=== PATIENT | male | born 1960 | race Caucasian/White ===

== ENCOUNTER 2020-07-28 03:12 | Observation (INO) | payer OTHER ==
[~2020-07-28] VITALS: Ht 190.5 cm; Wt 182.9 kg
[2020-07-28] VITALS (9 sets, daily range): BP systolic 135–169; BP diastolic 68–90
[~2020-07-28 03:12] MED LIST: ACCU40TA PO; AMLO1TAB25 PO; ASPI81TA26 PO; FURO40TA2 PO; GLIP5TAB20 PO; K-TA1TAB PO; METF500T13 PO; SIMV40TA20 PO; onglyza PO
[2020-07-28] MEDS ORDERED: diphenhydrAMINE 50MG/ML VIAL (J1200) As Ordered ONE (03:41)
[2020-07-28] MEDS ORDERED: diphenhydrAMINE 50MG/ML VIAL (J1200) IV STA (03:42)
[2020-07-28] MEDS ORDERED: EPINEPHrine INJ 1 MG/ML 1ML AMP IM STA (03:42)
[2020-07-28] MEDS ORDERED: FAMOTIDINE INJ 20MG/2ML VIAL (S0028 PER 1) IVP ONE (03:45)
[2020-07-28] MEDS ORDERED: methylPREDNISolone 125MG 2ML VIAL IV ONE (03:45)
[2020-07-28 04:30] LABS: BASO # 0.1 10^3/uL (0.0-0.2); BASO % 0.8 % (0.0-1.0); EOS # 0.3 10^3/uL (0.0-0.5); EOS % 4.9 % (0.0-3.0); HEMATOCRIT 45.1 % (42.0-52.0); HEMOGLOBIN 14.1 g/dl (13.5-17.5); LYMPH # 1.7 10^3/uL (1.5-5.0); LYMPH % 27.1 % (24.0-44.0); MEAN CORPUSCULAR HEMOGLOBIN 27.9 pg (27.0-33.0); MEAN CORPUSCULAR HGB CONC 31.3 g/dl (32.0-36.5); MEAN CORPUSCULAR VOLUME 89.3 fl (80.0-96.0); MONO # 0.5 10^3/uL (0.0-0.8); MONO % 8.5 % (2.0-8.0); NEUTROPHILS # 3.7 10^3/uL (1.5-8.5); NEUTROPHILS % 58.4 % (36.0-66.0); PLATELET COUNT, AUTOMATED 241 10^3/uL (150-450); RED BLOOD COUNT 5.05 10^6/uL (4.30-6.10); WHITE BLOOD COUNT 6.4 10^3/uL (4.0-10.0)
[2020-07-28 05:04] LABS: ALBUMIN 3.3 GM/DL (3.2-5.2); ALT/SGPT 51 U/L (12-78); BILIRUBIN,DIRECT 0.1 MG/DL (0.0-0.2); BILIRUBIN,TOTAL 0.3 MG/DL (0.2-1.0); BLOOD UREA NITROGEN 41 MG/DL (7-18); CARBON DIOXIDE LEVEL 28 MEQ/L (21-32); CHLORIDE LEVEL 97 MEQ/L (98-107); CREATININE FOR GFR 1.27 MG/DL (0.70-1.30); GLOMERULAR FILTRATION RATE > 60.0 (>49); GLUCOSE, FASTING 245 MG/DL (70-100); POTASSIUM SERUM 3.7 MEQ/L (3.5-5.1); SODIUM LEVEL 136 MEQ/L (136-145); TOTAL PROTEIN 6.9 GM/DL (6.4-8.2)
[2020-07-28] MEDS ORDERED: ZOCO40TA PO (05:56)
[2020-07-28] MEDS ORDERED: FURO80TA2 PO (05:56)
[2020-07-28] MEDS ORDERED: GLIP10TA6 PO (05:56)
[2020-07-28] MEDS ORDERED: FISH1000 PO (05:56)
[2020-07-28] MEDS ORDERED: METF10004 PO (05:56)
[2020-07-28] MEDS ORDERED: [UNRECOGNIZED DRUG - OTHER] (05:56)
[2020-07-28] MEDS ORDERED: METO50TA7 PO (06:03)
[2020-07-28] MEDS ORDERED: XARE20TA PO (06:03)
[2020-07-28] MEDS ORDERED: STEG5TAB PO (06:03)
[2020-07-28] MEDS ORDERED: EZET10TA21 PO (06:03)
[2020-07-28] MEDS ORDERED: TRULICITY (06:03)
[2020-07-28] MEDS ORDERED: METO25TA PO (06:03)
[2020-07-28] MEDS ORDERED: GABA-282 PO ×2 (06:03)
[2020-07-28] MEDS ORDERED: OXYB5TAB10 PO (06:03)
[2020-07-28] MEDS ORDERED: MITI1CAP PO (06:03)
[2020-07-28] MEDS ORDERED: BASA100I SC (06:03)
[2020-07-28] MEDS ORDERED: TRUL0.5I SC (06:08)
--- NOTE | 2020-07-28 07:07 | HPEPDOC ---
General Date of Admission Jul 28, 2020 at 05:33 Date of Service: Jul 28, 2020 Chief Complaint The patient is a 60-year-old male admitted with a reason for visit of Swollen Tongue. Source: Patient History of Present Illness Mr. Mckeon is a 60 year old male with DM and hypertension who presents with angioedema. Recently he had gout of his left leg and was started on colchicine on Tuesday. Last night, he woke up around midnight and his tongue felt frozen and stiff. He went back to sleep but work up again 30 minutes later. He was concerned that he may have had a stroke since he could not move his tongue and went to a mirror to look at his tongue. His tongue was so large it filled his entire mouth. Denies dyspnea. He came to the ED. He was treated with diphenhydramine, famotidine, solumedrol, and epinephrine. His tongue swelling improved, but still large. ED ordered 2FFP for tongue swelling and called for admission. When I saw patient, he was sitting up. He was not in any distress. Denies fever, chest pain, dyspnea, abdominal pain, or dysuria. He is on quinapril and has been taking quinapril for a long time. Suspecting angioedema from quinapril. Patient will be place in observation for angioedema secondary to quinapril. Home Medications Scheduled Aspirin (Aspirin EC) 81 Mg Tab, 81 MG PO DAILY, (Reported) Colchicine (Mitigare) 0.6 Mg Capsule, 0.6 MG PO BID, (Reported) Dulaglutide (Trulicity) 1.5 Mg/0.5 Ml Pen.injctr, 1.5 MG SC Q7D, (Reported) tuesday Ertugliflozin Pidolate (Steglatro) 5 Mg Tablet, 5 MG PO DAILY, (Reported) Ezetimibe (Ezetimibe) 10 Mg Tablet, 10 MG PO DAILY, (Reported) Furosemide (Furosemide) 80 Mg Tablet, 80 MG PO BID, (Reported) Gabapentin (Gabapentin) 300 Mg Capsule, 300 MG PO QAM, (Reported) Gabapentin (Gabapentin) 300 Mg Capsule, 600 MG PO QPM, (Reported) Glipizide (Glipizide) 10 Mg Tablet, 10 MG PO BID, (Reported) Insulin Glargine,Hum.rec.anlog (Basaglar Kwikpen U-100) 100 Unit/1 Ml Insuln.p en, 99 UNIT SC QHS, (Reported) Metformin HCl (Metformin HCl) 1,000 Mg Tablet, 1,000 MG PO BID, (Reported) Metolazone (Metolazone) 2.5 Mg Tablet, 2.5 MG PO 2XW, (Reported) TUESDAY AND TUESDAY Metoprolol Tartrate (Metoprolol Tartrate) 50 Mg Tablet, 50 MG PO BID, (Reported) [place]-3 Fatty Acids/Fish Oil (Fish Oil 1,000 mg Capsule) 1 Each Capsule, 2,000 MG PO DAILY, (Reported) Oxybutynin Chloride (Oxybutynin Chloride) 5 Mg Tablet, 5 MG PO BID, (Reported) Potassium Chloride (K-Tab ER) 20 Meq Tab, 40 MEQ PO DAILY, (Reported) Quinapril Hcl (Accupril) 40 Mg Tab, 40 MG PO DAILY, (Reported) Rivaroxaban (Xarelto) 20 Mg Tablet, 20 MG PO DAILY, (Reported) Simvastatin (Zocor) 40 Mg Tablet, 40 MG PO QPM, (Reported) Allergies Coded Allergies: atorvastatin (Verified Allergy, Unknown, 07/28/20) niacin (Verified Allergy, Unknown, 07/28/20) Past Medical History Medical History 1. CHF 2. CAD 3. Atrial fibrillation 4. Hypertension 5. Sleep apnea 6. Diabetes mellitus Surgical History 1. Umbilical hernia 2. Laminectomy Social History * Smoker: Denies Alcohol: Denies Drugs: denies A-FIB/CHADSVASC A-FIB History Current/History of A-Fib/PAF?: Yes Current PO Anticoag Therapy: Yes Review of Systems Constitutional: Denies: Chills, Fever Eyes: Denies: Vision change ENT: Reports: Other Symptoms (Tongue swelling) Skin: Denies: Rash Pulmonary: Denies: Dyspnea Cardiovascular: Denies: Chest Pain Gastrointestinal: Denies: Nausea, Abdominal Pain Genitourinary: Denies: Dysuria Hematologic: Reports: Bruising (bruises easily /2 Xarelto) Psych: Denies: Anxiety, Depression Physical Examination General Exam: Positive: Alert, Cooperative Eye Exam: Positive: EOMI; Negative: Sclera icteric ENT Exam: Positive: Other ENT (Tongue swelling, but midline, came move left and right) Neck Exam: Positive: Supple Chest Exam: Positive: Clear to auscultation; Negative: Rales, Rhonchi, Wheezing Heart Exam: Positive: Rate Normal Abdomen Exam: Positive: Normal bowel sounds, Soft, Other (obese) Neuro Exam: Positive: Cranial Nerves 3-12 NL Psych Exam: Positive: Mental status NL, Mood NL Vital Signs Vital Signs Date Time Temp Pulse Resp B/P (MAP) Pulse Ox O2 Delivery O2 Flow Rate FiO2 07/28/20 03:13 98.7 65 18 157/103 (121) 95 Room Air Laboratory Data Labs 24H Laboratory Tests 2 07/28/20 04:22: Immature Granulocyte % (Auto) 0.3, Neutrophils (%) (Auto) 58.4, Lymphocytes (%) (Auto) 27.1, Monocytes (%) (Auto) 8.5H, Eosinophils (%) (Auto) 4.9H, Basophils (%) (Auto) 0.8, Neutrophils # (Auto) 3.7, Lymphocytes # (Auto) 1.7, Monocytes # (Auto) 0.5, Eosinophils # (Auto) 0.3, Basophils # (Auto) 0.1, Nucleated Red Blood Cells % (auto) 0.0, Anion Gap 11, Glomerular Filtration Rate > 60.0, Calcium Level 9.0, Total Bilirubin 0.3, Direct Bilirubin 0.1, Aspartate Amino Transf (AST/SGOT) 34, Alanine Aminotransferase (ALT/SGPT) 51, Alkaline Phosphatase 171H, Total Protein 6.9, Albumin 3.3, Albumin/Globulin Ratio 0.9 CBC/BMP Laboratory Tests 07/28/20 04:22 Assessment/Plan Mr. Mckeon is a 60 year old male here with angioedema 2/2 ACEi. Received steroids, epinephrine, famotidine, and diphenhydramine in the ED. Swelling improved. Now receiving FFP. Patient here for observation. Plan / VTE VTE Prophylaxis Ordered?: Yes Plan Plan 1. Angioedema 2/2 ACEi -Hold quinapril -Already received steroids, diphenhydramine, famotidine, and epinephrine with improvement -Now receiving FFP -Supportive care 2. Hypertension -Hold quinapril -Continue metoprolol 3. Diabetes mellitus -Hold glipizide and metformin -Sliding scale insulin and carbohydrate consistent diet 4. CHF -Continue furosemide and metoprolol 5. CAD -Continue aspirin, simvastatin, and metoprolol 6. Atrial fibrillation -Continue Xarelto and metoprolol 7. DVT ppx -On Xarelto Disposition: To receive 2u FFP and monitor on observation. If tolerates diet, po ssible discharge home with instructions to stop quinapril JOHN VEGA DO Jul 28, 2020 06:02
[2020-07-28] MEDS: oxyBUTYnin 5 MG TAB PO SCH ×2 (09:00→20:37)
[2020-07-28] MEDS: POTASSIUM CHLORIDE 10 MEQ SR TABLET PO SCH (13:48)
[2020-07-28] MEDS: RIVAROXABAN 20 MG TAB (XARELTO) PO SCH (13:49)
[2020-07-28] MEDS: ASPIRIN 81 MG ENTERIC TAB PO SCH (13:49)
[2020-07-28] MEDS: METOPROLOL TART 50 MG TAB PO SCH ×2 (13:49→20:36)
[2020-07-28] MEDS: GABAPENTIN 300 MG CAP PO SCH (13:50)
[2020-07-28] MEDS: COLCHICINE 0.6 MG TABLET PO SCH ×2 (13:50→20:36)
[2020-07-28] MEDS: FUROSEMIDE 80 MG TAB PO SCH ×2 (13:50→17:17)
[2020-07-28] MEDS: EZETIMIBE 10 MG TAB (ZETIA) PO SCH (13:50)
[2020-07-28] MEDS ORDERED: GLUCAGON INJ 1MG VIAL SC PRN (15:15)
[2020-07-28] MEDS ORDERED: GLUCOSE 4GM CHEW TABLET PO PRN (15:15)
[2020-07-28] MEDS ORDERED: DEXTROSE 50% 50 ML SYRINGE IV PRN (15:15)
[2020-07-28] MEDS ORDERED: SLF 3 ML SYR IV PRN (15:45)
[2020-07-28] MEDS: HumaLOG INSULIN (NovoLOG) PER UNIT SC SCH (16:04)
[2020-07-28] MEDS: SLF 3 ML SYR IV SCH (20:38)
[2020-07-28] MEDS ORDERED: GABAPENTIN 300 MG CAP PO SCH (21:00)
[2020-07-28] MEDS ORDERED: SIMVASTATIN 40 MG TAB PO SCH (21:00)
[2020-07-28] MEDS ORDERED: LEVEMIR (INSULIN DETEMIR) 1 UNITS/0.01ML SC SCH (21:00)
[2020-07-29] VITALS: BP 136/70
[2020-07-29 04:00] VITALS: BP 131/76
[2020-07-29] MEDS: SLF 3 ML SYR IV SCH (06:48)
[2020-07-29 08:00] VITALS: BP 122/63
[2020-07-29] MEDS: COLCHICINE 0.6 MG TABLET PO SCH (08:07)
[2020-07-29] MEDS: HumaLOG INSULIN (NovoLOG) PER UNIT SC SCH ×2 (08:07→11:42)
[2020-07-29] MEDS: RIVAROXABAN 20 MG TAB (XARELTO) PO SCH (08:08)
[2020-07-29] MEDS: EZETIMIBE 10 MG TAB (ZETIA) PO SCH (08:08)
[2020-07-29] MEDS: ASPIRIN 81 MG ENTERIC TAB PO SCH (08:08)
[2020-07-29] MEDS: POTASSIUM CHLORIDE 10 MEQ SR TABLET PO SCH (08:08)
[2020-07-29] MEDS: METOPROLOL TART 50 MG TAB PO SCH (08:08)
[2020-07-29] MEDS: GABAPENTIN 300 MG CAP PO SCH (08:09)
[2020-07-29] MEDS: oxyBUTYnin 5 MG TAB PO SCH (08:09)
[2020-07-29] MEDS: FUROSEMIDE 80 MG TAB PO SCH (08:09)
[2020-07-29] MEDS ORDERED: metOLazone 2.5 MG TAB PO SCH (09:00)
[2020-07-29] MEDS ORDERED: AMLO1TAB24 PO (10:13)
--- NOTE | 2020-07-29 11:36 | IPNPDOC ---
Text Note Date of Service The patient was seen on 07/28/20. NOTE Patient was seen and examined this morning. He states that he feels a little better and his swollen tongue is getting better. He continues to be tachycardic, likely secondary to the EPI which was given in the ER PHYSICAL EXAMINATION: General: The patient is awake, alert, oriented x3, sitting up in the bed in no apparent distress. Head and Neck Exam: Extraocular muscles intact. Pupils equally round and reactive to light. Mucous membranes are moist. Tongue is slightly swollen but uvula is midline. No hoarseness of voice Neck is supple. There is no jugular venous distention (JVD). Cardiovascular: S1 and S2, regular rate. Trace edema of the bilateral lower extremities. Respiratory: Mild inspiratory crackles at the right base, mildly decreased breath sounds at the left side. Abdomen: Soft. Positive bowel sounds. Nontender. No organomegaly. Genitourinary: Deferred Musculoskeletal: Clubbing of the fingernails, no cyanosis was noted. Central Nervous System (SHINGLE PACKER): No focal deficit. Power is 5/5 in all extremities. Assessment and plan Mr. Mckeon is a 60 year old male with DM and hypertension who presents with angioedema. Recently he had gout of his left leg and was started on colchicine on Tuesday. Last night, he woke up around midnight and his tongue felt frozen and stiff. He went back to sleep but work up again 30 minutes later. He was concerned that he may have had a stroke since he could not move his tongue and went to a mirror to look at his tongue. His tongue was so large it filled his entire mouth. He came to the ED. He was treated with diphenhydramine, famotidine, solumedrol, and epinephrine. His tongue swelling improved, but still large. ED ordered 2FFP for tongue swelling and he was admitted to our service. He is on quinapril and has been taking quinapril for a long time. Suspecting angioedema from quinapril. Patient will be place in observation for angioedema s econdary to quinapril.. He continues to be tachycardic, likely secondary to the epi he got in the ER and for that reason, he will be continued to be in observation. 1. Angioedema 2/2 ACEi -Hold quinapril -Already received steroids, diphenhydramine, famotidine, and epinephrine with improvement -FFP as per ER -Supportive care -Decadron 2 mg oral daily 2. Hypertension -Hold quinapril -Continue metoprolol 3. Diabetes mellitus -Hold glipizide and metformin -Sliding scale insulin and carbohydrate consistent diet 4. CHF, most likely diastolic heart failure ( no echo in the system.) -Continue furosemide and metoprolol. Input output and 2 g sodium restriction 5. CAD -Continue aspirin, simvastatin, and metoprolol 6. Atrial fibrillation -Continue Xarelto and metoprolol 7. DVT ppx -On Xarelto Disposition: Continue monitoring him on telemetry and once his heart rate is stabilized and his swelling improves. He'll be sent home, hopefully within the next 24 hours VS,Esmer, I+O VSEsmer, I+O Laboratory Tests 07/28/20 04:22 Vital Signs Date Time Temp Pulse Resp B/P (MAP) Pulse Ox O2 Delivery O2 Flow Rate FiO2 07/28/20 08:19 145 20 97 07/28/20 08:01 166/70 (102) 07/28/20 07:42 Room Air 07/28/20 06:53 96.0 FELA BALL MD Jul 28, 2020 11:04
--- NOTE | 2020-07-29 11:41 | DS.PDOC ---
Discharge Summary General Date of Admission Jul 28, 2020 at 05:33 Date of Discharge 07/29/20 Discharge Summary Chief complaints: Swollen tongue Final diagnosis Anaphylaxis Drug reaction History of present illness and Hospital course Mr. Mckeon is a 60 year old male with DM and hypertension who presents with angioedema. Recently he had gout of his left leg and was started on colchicine on Tuesday. Last night, he woke up around midnight and his tongue felt frozen and stiff. He went back to sleep but work up again 30 minutes later. He was conc erned that he may have had a stroke since he could not move his tongue and went to a mirror to look at his tongue. His tongue was so large it filled his entire mouth. He came to the ED. He was treated with diphenhydramine, famotidine, solumedrol, and epinephrine. His tongue swelling improved, but still large. ED ordered 2FFP for tongue swelling and he was admitted to our service. He is on quinapril and has been taking quinapril for a long time. Suspecting angioedema from quinapril. Patient will be place in observation for angioedema secondary to quinapril.. He was tachycardic, likely secondary to the epi he got in the ER and for that reason, that is the reason he was continued to be monitored and now his heart rates are in 80s and 90s. He continues to be on his metoprolol. We had a long discussion regarding his inability to be DC'd and at the same time he got beclomethasone as well as Decadron for 2 days. He is in no distress right now. His uvula is midline. He has no shortness of breath. Lungs are clear aus cultation and he has no dysphagia. He has been advised to follow with the PCP regarding his other medications as well and he has an appointment with his PCP with regards to his colchicine which she has been taking for his gout flareup. Given his CKD, I have advised him to have a close follow with his PCP and get his drugs ingested. He also has a follow-up with his cardiology with [facility] next month for his A. fib. He continues to be on Xarelto and metoprolol, and currently he is rate controlled. He is eager to go home today and maximal benefit from this hospital stay has been opting. PHYSICAL EXAMINATION: General: The patient is awake, alert, oriented x3, sitting up in the bed in no apparent distress. Head and Neck Exam: Extraocular muscles intact. Pupils equally round and reactive to light. Mucous membranes are moist. Tongue is slightly swollen but uvula is midline. No hoarseness of voice Neck is supple. There is no jugular venous distention (JVD). Cardiovascular: S1 and S2, regular rate. Trace edema of the bilateral lower extremities. Respiratory: Clear auscultation bilaterally Abdomen: Soft. Positive bowel sounds. Nontender. No organomegaly. Genitourinary: Deferred Musculoskeletal: Clubbing of the fingernails, no cyanosis was noted. Central Nervous System (HYDRAULIC PLUMBER HELPER): No focal deficit. Power is 5/5 in all extremities. Mediictations. As per discharge reconciliation medication list. Quinapril has been discontinued and amlodipine 5, has been admitted and started Activity as tolerated Diet. 2 g sodium diet Follow-up appointments. PCP in 1 week. Condition on discharge. Patient is medically optimized for discharge Discharge disposition: Home Total time spent on this discharge including coordination of care, review of chart documentation and actual patient contact is around 35 minutes Vital Signs/I&Os Vital Signs Date Time Temp Pulse Resp B/P (MAP) Pulse Ox O2 Delivery O2 Flow Rate FiO2 07/29/20 08:08 100 07/29/20 08:00 97.7 19 122/63 (82) 95 Room Air I&O- Last 24 Hours up to 6 AM 07/29/20 06:00 Intake Total 1245 ml Output Total 1300 ml Balance -55 ml Laboratory Data Labs 24H Laboratory Tests 2 07/28/20 13:14: Bedside Glucose (Misc Panel) 360H 07/28/20 17:10: Bedside Glucose (Misc Panel) 341H 07/28/20 20:20: Bedside Glucose (Misc Panel) 446H 07/29/20 06:47: Bedside Glucose (Misc Panel) 303H FSBS Laboratory Tests Test 07/28/20 13:14 07/28/20 17:10 07/28/20 20:20 07/29/20 06:47 Range/Units Bedside Glucose (Misc Panel) 360 341 446 303 80-115 MG/DL Microbiology Microbiology 07/28/20 Respiratory Virus Panel (PCR) (KAY) - Final, Complete Discharge Medications Scheduled Amlodipine Besylate (Amlodipine Besylate) 5 Mg Tablet, 5 MG PO DAILY Aspirin (Aspirin EC) 81 Mg Tab, 81 MG PO DAILY, (Reported) Colchicine (Mitigare) 0.6 Mg Capsule, 0.6 MG PO BID, (Reported) Dulaglutide (Trulicity) 1.5 Mg/0.5 Ml Pen.injctr, 1.5 MG SC Q7D, (Reported) tuesday Ertugliflozin Pidolate (Steglatro) 5 Mg Tablet, 5 MG PO DAILY, (Reported) Ezetimibe (Ezetimibe) 10 Mg Tablet, 10 MG PO DAILY, (Reported) Furosemide (Furosemide) 80 Mg Tablet, 80 MG PO BID, (Reported) Gabapentin (Gabapentin) 300 Mg Capsule, 300 MG PO QAM, (Reported) Gabapentin (Gabapentin) 300 Mg Capsule, 600 MG PO QPM, (Reported) Glipizide (Glipizide) 10 Mg Tablet, 10 MG PO BID, (Reported) Insulin Glargine,Hum.rec.anlog (Basaglar Kwikpen U-100) 100 Unit/1 Ml Insul n.pen, 99 UNIT SC QHS, (Reported) Metformin HCl (Metformin HCl) 1,000 Mg Tablet, 1,000 MG PO BID, (Reported) Metolazone (Metolazone) 2.5 Mg Tablet, 2.5 MG PO 2XW, (Reported) TUESDAY AND TUESDAY Metoprolol Tartrate (Metoprolol Tartrate) 50 Mg Tablet, 50 MG PO BID, (Reported) [place]-3 Fatty Acids/Fish Oil (Fish Oil 1,000 mg Capsule) 1 Each Capsule, 2,000 MG PO DAILY, (Reported) Oxybutynin Chloride (Oxybutynin Chloride) 5 Mg Tablet, 5 MG PO BID, (Reported) Potassium Chloride (K-Tab ER) 20 Meq Tab, 40 MEQ PO DAILY, (Reported) Rivaroxaban (Xarelto) 20 Mg Tablet, 20 MG PO DAILY, (Reported) Simvastatin (Zocor) 40 Mg Tablet, 40 MG PO QPM, (Reported) Allergies Coded Allergies: atorvastatin (Verified Allergy, Unknown, 07/28/20) niacin (Verified Allergy, Unknown, 07/28/20) FELA BALL MD Jul 29, 2020 11:41
== END 2020-07-29 12:09 | disposition home or self-care (01) ==
LOC: M ED 03:12 → M ED INP 05:33 → M MSPAV 07:38 → M ED INP 07:41 → M PCU 16:48
PROVIDERS: ADMIT Internal Medicine; ATTEND Internal Medicine
DX: T88.6XXA Anaphylactic reaction due to adverse effect of correct drug or medicament properly administered, initial encounter (principal); E11.9 Type 2 diabetes mellitus without complications; I11.9 Hypertensive heart disease without heart failure; I50.9 Heart failure, unspecified; I25.10 Atherosclerotic heart disease of native coronary artery without angina pectoris; I48.91 Unspecified atrial fibrillation; G47.30 Sleep apnea, unspecified; M10.9 Gout, unspecified; Z79.82 Long term (current) use of aspirin; Z79.899 Other long term (current) drug therapy; Z79.4 Long term (current) use of insulin; Z79.84 Long term (current) use of oral hypoglycemic drugs; Z79.01 Long term (current) use of anticoagulants; Z88.8 Allergy status to other drugs, medicaments and biological substances
CPT/HCPCS: 36430; 80048; 80076; 85025; 86850; 86900; 86901; 86927; 87798; 93041; 94760; 96372; 96374; 96375; 99285; J0171; J1200; J2930; P9017

== ENCOUNTER 2020-08-17 00:54 | Inpatient (IN) | payer OTHER ==
[~2020-08-17] VITALS: Ht 190.5 cm; Wt 185.0 kg
[2020-08-17] VITALS (8 sets, daily range): BP systolic 134–170; BP diastolic 71–94
[~2020-08-17 00:54] MED LIST changes: +AMLO1TAB24 PO; +BASA100I SC; +EZET10TA21 PO; +FISH1000 PO; +FURO80TA2 PO; +GABA-282 PO; +GLIP10TA6 PO; +METF10004 PO; +METO25TA PO; +METO50TA7 PO; +MITI1CAP PO; +OXYB5TAB10 PO; +STEG5TAB PO; +TRUL0.5I SC; +TRULICITY; +XARE20TA PO; +ZOCO40TA PO; +[UNRECOGNIZED DRUG - OTHER]
[2020-08-17] MEDS ORDERED: FAMOTIDINE INJ 20MG/2ML VIAL (S0028 PER 1) IVP ONE (01:00)
[2020-08-17] MEDS ORDERED: diphenhydrAMINE 50MG/ML VIAL (J1200) IV ONE (01:00)
[2020-08-17] MEDS ORDERED: dexameTHASONE 20MG/5ML VIAL (J1100 PER 1MG) IV ONE (01:00)
[2020-08-17] MEDS ORDERED: RACEPINEPHrine 2.25 % UD INHA INH ONE (01:00)
[2020-08-17 01:10] LABS: BASO % 0.5 % (0.0-1.0); EOS # 0.3 10^3/uL (0.0-0.5); EOS % 5.2 % (0.0-3.0); HEMATOCRIT 44.5 % (42.0-52.0); HEMOGLOBIN 14.1 g/dl (13.5-17.5); LYMPH # 2.2 10^3/uL (1.5-5.0); LYMPH % 34.4 % (24.0-44.0); MEAN CORPUSCULAR HEMOGLOBIN 28.7 pg (27.0-33.0); MEAN CORPUSCULAR HGB CONC 31.7 g/dl (32.0-36.5); MEAN CORPUSCULAR VOLUME 90.6 fl (80.0-96.0); MONO # 0.5 10^3/uL (0.0-0.8); MONO % 8.1 % (2.0-8.0); NEUTROPHILS # 3.2 10^3/uL (1.5-8.5); NEUTROPHILS % 51.5 % (36.0-66.0); PLATELET COUNT, AUTOMATED 196 10^3/uL (150-450); RED BLOOD COUNT 4.91 10^6/uL (4.30-6.10); WHITE BLOOD COUNT 6.3 10^3/uL (4.0-10.0)
[2020-08-17 03:00] LABS: ALBUMIN 3.3 GM/DL (3.2-5.2); ALT/SGPT 52 U/L (12-78); BILIRUBIN,DIRECT 0.1 MG/DL (0.0-0.2); BILIRUBIN,TOTAL 0.3 MG/DL (0.2-1.0); BLOOD UREA NITROGEN 21 MG/DL (7-18); CARBON DIOXIDE LEVEL 28 MEQ/L (21-32); CHLORIDE LEVEL 104 MEQ/L (98-107); GLOMERULAR FILTRATION RATE > 60.0 (>49); GLUCOSE, FASTING 207 MG/DL (70-100); POTASSIUM SERUM 3.6 MEQ/L (3.5-5.1); SODIUM LEVEL 139 MEQ/L (136-145); TOTAL PROTEIN 6.6 GM/DL (6.4-8.2)
--- NOTE | 2020-08-17 03:47 | REPVR ---
PROCEDURE INFORMATION: Exam: XR Soft Tissue Neck Exam date and time: 08/17/2020 3:11 AM Age: 60 years old Clinical indication: Angioedema TECHNIQUE: Imaging protocol: XR of the soft tissues of the neck. COMPARISON: No relevant prior studies available. FINDINGS: Airway: No airway compromise is noted. Soft tissues: There are calcifications in the region of the palatine tonsils, which likely represent palatine tonsilloliths and are the sequela of prior infection and/or inflammation. There is enlargement of the soft tissues of the neck. Bones/joints: There are degenerative changes in the cervical spine. Other findings: There is a linear density projecting over the right side of the neck, which appears external to the patient. IMPRESSION: 1. Enlargement of the soft tissues of the neck. 2. No airway compromise identified in the neck. Electronically signed by: Karl Gilmore On 08/17/2020 03:47:06 AM
--- NOTE | 2020-08-17 03:47 | REPVR ---
PROCEDURE INFORMATION: Exam: XR Chest Exam date and time: 08/17/2020 3:11 AM Age: 60 years old Clinical indication: Angioedema TECHNIQUE: Imaging protocol: XR of the chest Views: 1 view. COMPARISON: No relevant prior studies available. FINDINGS: Lungs: There is left basilar atelectasis. No pulmonary edema is noted. Pleural spaces: Unremarkable. No pleural effusion. No pneumothorax. Heart/Mediastinum: The cardiac silhouette is enlarged. Bones/joints: Unremarkable. Other findings: There is a linear density projecting over the right upper hemithorax and right supraclavicular region, which is likely external to the patient. IMPRESSION: Cardiomegaly. Electronically signed by: Karl Gilmore On 08/17/2020 03:47:19 AM
[2020-08-17] MEDS ORDERED: AMLO1TAB24 PO (03:53)
[2020-08-17] MEDS ORDERED: med rec comment (03:56)
[2020-08-17 04:08] LABS: RSV AMPLIFICATION NEGATIVE (NEGATIVE)
--- NOTE | 2020-08-17 04:32 | HPEPDOC ---
[facility] Medical History & Physical Date of Admission Aug 17, 2020 Date of Service: Aug 17, 2020 Attending Physician: MARZENA WILLIAM MD History and Physical CHIEF COMPLAINT: tongue swelling HISTORY OF PRESENT ILLNESS: 60 year old male with PMHx detailed below presents after waking up this morning with a swollen tongue. He states he woke up suddenly and could feel his tongue feeling stiff and swollen. He states this occurred once before just a few weeks ago, so he knew he needed to get up and come to the ED. He states his symptoms presented the same way last time, waking him up out of sleep. At that time, his symptoms were attributed to his COLT- inhibitor medication, quinapril, and this was discontinued. He states he has not take that medication since before the first episode in July. He also notes he is currently having an acute flare of gout in his right ankle. He states he has been taking colchicine for gout. In the ER, the patient was treated with racepinephrine, benadryl, famotadine, decadron, and FFP x2 units. Patient was somewhat limited in his ability to give a full history due to difficulty speaking; some of the history is obtained by chart review. PAST MEDICAL HISTORY: 1. CHF 2. CAD 3. Atrial fibrillation 4. Hypertension 5. Sleep apnea 6. Diabetes mellitus 7. Gout PAST SURGICAL HISTORY: 1. Umbilical hernia 2. Laminectomy SOCIAL HISTORY: Denies use of tobacco, alcohol, IV/illicit substances FAMILY HISTORY: No family history of angioedema or facial/mouth swelling. Otherwise noncontributory. ALLERGIES: Please see below. REVIEW OF SYSTEMS: CONSTITUTIONAL: Denies fevers, chills, night sweats, fatigue, unexpected change in weight. HEENT: Denies change in vision, change in hearing. CARDIOVASCULAR: Denies chest pain, palpitations, lightheadedness. RESPIRATORY: Denies cough, wheezing. GASTROINTESTINAL: Denies nausea, vomiting, abdominal pain, diarrhea, constipa tion, blood in stool. GENITOURINARY: Denies dysuria, urinary frequency, urinary urgency. SKIN: Denies rash, lesions. MUSCULOSKELETAL: Endorses current buttocks pain due to discomfort sitting on the stretcher. NEUROLOGICAL: Denies headache, dizziness, weakness. PSYCHIATRIC: Denies change in mood. HOME MEDICATIONS: Please see below. PHYSICAL EXAMINATION: VITAL SIGNS: See below GENERAL: Alert, somewhat uncomfortable, in no acute distress HEENT: Normocephalic, atraumatic, PERRLA, EOMI, tongue appears swollen, minimal swelling of the lips, patient able to talk for short periods but has difficulty managing secretions and needs to stop frequently to clear them. NECK: Supple, trachea midline, no lymphadenopathy, no JVD CARDIOVASCULAR: Tachycardic with irregularly irregular rhythm, normal S1 and S2. No murmurs, rubs, or gallops RESPIRATORY: Clear to auscultation bilaterally with equal air entry bilaterally. No wheezing, rhonchi, or rales. ABDOMEN: Obese, soft, nontender, nondistended, bowel sounds present. EXTREMITIES: Trace to 1+ pitting edema in bilateral lower extremities. Swelling, erythema, and tenderness over the right medial ankle. SKIN: Stasis dermatitis over bilateral lower legs. No hives. NEUROLOGIC: Alert and oriented x3 to person, place and time. No focal deficits appreciated PSYCHIATRIC: Mood and affect appropriate LABORATORY DATA: See below. IMAGING: (impressions per radiologist report) - XR Neck 1. Enlargement of the soft tissues of the neck. 2. No airway compromise identified in the neck. - CXR Cardiomegaly. MICROBIOLOGY: Please see below. ASSESSMENT: 60 year old male with PMHx including atrial fibrillation, CAD, CHF, HTN, VANESSA, DM, gout, and one prior episode of angioedema presented to the ED with acute onset tongue swelling, admitted for management and further evaluation of angioedema PLAN: 1. Angioedema 2/2 medication vs hereditary vs allergy vs recurrent idiopathic - s/p racepinephrine, benadryl, famotadine, decadron, and FFP x2 units in the ER - NPO diet pending swallow eval. Can do nursing bedside swallow if he is improving. - Steroids daily, will start with IV solumedrol 80 mg daily until he is able to take PO, then switch to prednisone - Medication less likely give he is no longer on any meds which are higher risk of angioedema. Could consider switching some of his medications that have a small risk of angioedema - Allergic less likely given no urticaria/rash/pruritus. - Ordered C4 level to begin work up for possible HAE. Consider drawing tender referral on discharge. 2. Acute gout - hold colchicine while NPO - Pt started on daily steroid for angioedema above, may help treat his gout flare as well 3. Diabetes mellitus - Hold home medications - FSBS q6h while NPO, hypoglycemic protocol 4. CHF - hold home furosemide and metolazone while NPO, consider IV dosing if indicated - Will hold off on IV maintenance fluids for now to avoid fluid overload 5. CAD - hold home aspirin, simvastatin, and metoprolol while NPO 6. Atrial fibrillation - Hold metoprolol while NPO, consider IV medication if indicated for rate control - Will switch Xarelto to Lovenox while NPO in order to maintain anticoagulation DVT ppx: Full dose lovenox Disposition: admitted inpatient to ICU, expect greater than two midnights stay Vital Signs Vital Signs Date Time Temp Pulse Resp B/P (MAP) Pulse Ox O2 Delivery O2 Flow Rate FiO2 08/17/20 04:01 97.8 104 22 134/78 96 Room Air Laboratory Data Labs 24H Laboratory Tests 2 08/17/20 01:00: Immature Granulocyte % (Auto) 0.3, Neutrophils (%) (Auto) 51.5, Lymphocytes (%) (Auto) 34.4, Monocytes (%) (Auto) 8.1H, Eosinophils (%) (Auto) 5.2H, Basophils (%) (Auto) 0.5, Neutrophils # (Auto) 3.2, Lymphocytes # (Auto) 2.2, Monocytes # (Auto) 0.5, Eosinophils # (Auto) 0.3, Basophils # (Auto) 0.0, Nucleated Red Blood Cells % (auto) 0.0, Anion Gap 7L, Glomerular Filtration Rate > 60.0, Calcium Level 9.0, Total Bilirubin 0.3, Direct Bilirubin 0.1, Aspartate Amino Transf (AST/SGOT) 41H, Alanine Aminotransferase (ALT/SGPT) 52, Alkaline Phosphatase 198H, Total Protein 6.6, Albumin 3.3, Albumin/Globulin Ratio 1.0 08/17/20 03:17: Coronavirus (COVID-19)(PCR) NEGATIVE, Influenza Type A (RT-PCR) NEGATIVE, Influenza Type B (RT-PCR) NEGATIVE, Respiratory Syncytial Virus (PCR) NEGATIVE CBC/BMP Laboratory Tests 08/17/20 01:00 Home Medications Scheduled Amlodipine Besylate (Amlodipine Besylate) 5 Mg Tablet, 5 MG PO DAILY Aspirin (Aspirin EC) 81 Mg Tab, 81 MG PO DAILY Colchicine (Mitigare) 0.6 Mg Capsule, 0.6 MG PO BID Dulaglutide (Trulicity) 1.5 Mg/0.5 Ml Pen.injctr, 1.5 MG SC Q7D tuesday Ertugliflozin Pidolate (Steglatro) 5 Mg Tablet, 5 MG PO DAILY Ezetimibe (Ezetimibe) 10 Mg Tablet, 10 MG PO DAILY Furosemide (Furosemide) 80 Mg Tablet, 80 MG PO BID Gabapentin (Gabapentin) 300 Mg Capsule, 300 MG PO QAM Gabapentin (Gabapentin) 300 Mg Capsule, 600 MG PO QPM Glipizide (Glipizide) 10 Mg Tablet, 10 MG PO BID Insulin Glargine,Hum.rec.anlog (Basaglar Kwikpen U-100) 100 Unit/1 Ml Insuln.pen, 99 UNIT SC QHS Metformin HCl (Metformin HCl) 1,000 Mg Tablet, 1,000 MG PO BID Metolazone (Metolazone) 2.5 Mg Tablet, 2.5 MG PO 2XW TUESDAY AND TUESDAY Metoprolol Tartrate (Metoprolol Tartrate) 50 Mg Tablet, 50 MG PO BID [place]-3 Fatty Acids/Fish Oil (Fish Oil 1,000 mg Capsule) 1 Each Capsule, 2,000 MG PO DAILY Oxybutynin Chloride (Oxybutynin Chloride) 5 Mg Tablet, 5 MG PO BID Potassium Chloride (K-Tab ER) 20 Meq Tab, 40 MEQ PO DAILY Rivaroxaban (Xarelto) 20 Mg Tablet, 20 MG PO DAILY Simvastatin (Zocor) 40 Mg Tablet, 40 MG PO QPM Miscellaneous Medications [med rec comment] patient unable to speak. spoke briefly w/ patient nurse told me all meds were verified w/patient upon arrival.matched up with external Allergies Coded Allergies: atorvastatin (Verified Allergy, Unknown, 07/28/20) niacin (Verified Allergy, Unknown, 07/28/20) GME ATTESTATION GME ATTESTATION My faculty preceptor for this patient encounter was physically present during the encounter and was fully available. All aspects of the patient interview, examination, medical decision making process, and medical care plan development were reviewed and approved by the faculty preceptor. The faculty preceptor is aware and concurs with the plan as stated in the body of this note and will attest to such by his/her cosignature. ATTENDING NOTE I, A Yousef, have independently examined this patient and performed my own physical exam, as well as reviewed the documentation and edited where necessary. I have discussed in detail with the resident / student the findings and plan of treatment as documented by the resident / student and edited their note. I agree with their findings and treatment plan and have edited their documentation. I will continue to follow the patient during this hospital stay. 60M, patient is here with angioedema. He was here approximately one month ago also with Mckayla edema initially attributed to COLT inhibitor use which was discontinued patient says he hasnt taken it since then. Theres been no changes to his medications. He says he woke with the middle of night gasping for air br ought to the hospital found to have Mckayla edema swelling of his throat did not require intubation. He is placed in the ICU for close monitoring. Unfortunately a lot of the medications she takes can potentially cause Mckayla edema rarely. All nonessential medications were stopped. He is made nothing by mouth until swallow evaluation can be done. His medications are all IV currently. This could be her editary or idiopathic Mckayla edema and C4 level was ordered to initiate the workup using the algorithm with no family history of Mckayla edema. At time of discharge patient will need referral to an drawing tender to complete the workup. When I saw the patient his tongue was still swollen but he was able to speak in full sentences and didnt appear short of breath. MARYELLEN STERLING D.O. Aug 17, 2020 04:32 MARZENA WILLIAM MD Aug 18, 2020 05:15
[2020-08-17] MEDS ORDERED: GLUCOSE 4GM CHEW TABLET PO PRN ×2 (04:40→08:50)
[2020-08-17] MEDS ORDERED: DEXTROSE 50% 50 ML SYRINGE IV PRN ×2 (04:40→08:50)
[2020-08-17] MEDS ORDERED: GLUCAGON INJ 1MG VIAL SC PRN (04:40)
[2020-08-17 04:55] LABS: COMPLEMENT C4 33 MG/DL (10-40)
[2020-08-17] MEDS ORDERED: ENOXAPARIN 150MG/ML SYRINGE (J1650 PER 10MG) SC SCH (06:00)
[2020-08-17] MEDS ORDERED: methylPREDNISolone 125MG 2ML VIAL IV SCH (06:00)
[2020-08-17] MEDS: HumaLOG INSULIN (NovoLOG) PER UNIT SC SCH ×3 (07:30→18:51)
[2020-08-17] MEDS ORDERED: EZETIMIBE 10 MG TAB (ZETIA) PO SCH (09:00)
[2020-08-17] MEDS ORDERED: FUROSEMIDE 40MG/4ML VIAL (J1940) IV SCH (09:00)
[2020-08-17] MEDS ORDERED: metOLazone 2.5 MG TAB PO SCH (09:00)
[2020-08-17] MEDS ORDERED: RIVAROXABAN 20 MG TAB (XARELTO) PO SCH (09:00)
[2020-08-17] MEDS ORDERED: ASPIRIN 81MG ENTERIC TABLET PO SCH (09:00)
[2020-08-17] MEDS: traMADol 50 MG TAB PO PRN ×2 (09:12→17:31)
[2020-08-17] MEDS: METOPROLOL TART 50 MG TAB PO SCH ×2 (09:13→21:11)
--- NOTE | 2020-08-17 09:46 | ECGEPIP ---
[facility] - ED Test Date: 2020-08-17 Pat Name: LUX MAGAÑA Department: Room: [place] [address] Gender: Male Nurse Consultant: DEAN : 1960 Requested By: JEROME CROCKER Order Number: [id number] Reading MD: Carson Herrera Measurements Intervals [place] Rate: 93 P: WI: QRS: 16 QRSD: 90 T: 52 QT: 362 QTc: 450 Interpretive Statements Atrial fibrillation Low voltage QRS POOR R WAVE PROGRESSION NO PRIORS FOR COMPARISON Electronically Signed on 08-17-2020 9:46:15 EDT by Carson Herrera
[2020-08-17] MEDS ORDERED: LEVEMIR (INSULIN DETEMIR) 1 UNITS/0.01ML SC ONE (10:25)
--- NOTE | 2020-08-17 10:58 | IPNPDOC ---
Text Note Date of Service The patient was seen on 08/17/20. NOTE Subjective: Patient is better in the morning, oral swelling resolved, lips look normal. Patient denied any shortness of breath or difficulties in swallowing. Objective: GENERAL APPEARANCE: Morbidly obese male HEENT: no scleral icterus, no JVD, EOMI CARDIOVASCULAR: Irregularly irregular LUNGS: Diminished lung sounds bilaterally ABDOMEN: soft & not tender w palpitation MUSCULOSKELETAL: +3 pitting edema, skin changes consistent with chronic PVD INTEGUMENT: no generalized pallor NEUROLOGICAL: cranial nerve function from 2-12 intact intact, follows commands, speech not dysarthric Assessment and plan Patient is 60 year old male with PMHx including atrial fibrillation, CAD, CHF, HTN, VANESSA, DM, gout, and one prior episode of angioedema presented to the ED with acute onset tongue swelling, admitted for management and further evaluation of angioedema Angioedema Unclear etiology C4 level within normal limit, will check C1-INH and C1q in order to rule out inherited angioedema Continue steroids for now with antihistamine treatment Patient had 1 episode of angioedema around 1 month ago Patient's medications list is extensive and many of his medications can be potentially cause of angioedema: Gabapentin, Xarelto, Norvasc, aspirin, Trulicity, Ezetimibe, simvastatin Today I will introduce most essential medications to him. We will continue to monitor any allergic reaction in the hospital settings Patient will need follow-up with art therapy specialist in the outpatient settings for workup Gout Patient stated that he's been having gout exacerbation since last week We will continue colchicine and steroids. Type 2 diabetes Insulin sliding scale Detemir twice a day Diabetes diet Diastolic CHF Not in acute exacerbation Continue home cardioprotective medications Coronary artery diseases Aspirin on hold due to possible side effect as angioedema I changed simvastatin to rosuvastatin. Simvastatin could be cause of angioedema Atrial fibrillation Patient developed tachycardia in the morning I restarted metoprolol and xarelto Xarelto can be cause of angioedema, but it's essential medication and continue to monitor for any signs of angioedema Hyperlipidemia Continue rosuvastatin VS,Fishbone, I+O VS, Fishbone, I+O Laboratory Tests 08/17/20 01:00 Vital Signs Date Time Temp Pulse Resp B/P (MAP) Pulse Ox O2 Delivery O2 Flow Rate FiO2 08/17/20 09:13 123 08/17/20 09:12 30 96 Room Air 08/17/20 09:11 170/73 08/17/20 08:00 97.6 I&O- Last 24 Hours up to 6 AM 08/17/20 06:00 Intake Total 325 ml Balance 325 ml LUIS MAYNARD DO Aug 17, 2020 10:58
[2020-08-17] MEDS: FUROSEMIDE 80 MG TAB PO SCH ×2 (12:07→21:10)
[2020-08-17] MEDS: COLCHICINE 0.6 MG TABLET PO SCH (12:08)
[2020-08-17] MEDS: POTASSIUM CHLORIDE 10 MEQ SR TABLET PO SCH (12:08)
[2020-08-17 12:33] LABS: BASO % 0.1 % (0.0-1.0); HEMATOCRIT 43.7 % (42.0-52.0); HEMOGLOBIN 13.7 g/dl (13.5-17.5); LYMPH # 0.7 10^3/uL (1.5-5.0); LYMPH % 9.7 % (24.0-44.0); MEAN CORPUSCULAR HEMOGLOBIN 28.4 pg (27.0-33.0); MEAN CORPUSCULAR HGB CONC 31.4 g/dl (32.0-36.5); MEAN CORPUSCULAR VOLUME 90.7 fl (80.0-96.0); MONO % 0.6 % (2.0-8.0); NEUTROPHILS % 89.3 % (36.0-66.0); PLATELET COUNT, AUTOMATED 190 10^3/uL (150-450); RED BLOOD COUNT 4.82 10^6/uL (4.30-6.10); WHITE BLOOD COUNT 6.7 10^3/uL (4.0-10.0)
[2020-08-17 13:09] LABS: ALBUMIN 3.2 GM/DL (3.2-5.2); ALT/SGPT 55 U/L (12-78); BILIRUBIN,TOTAL 0.4 MG/DL (0.2-1.0); BLOOD UREA NITROGEN 22 MG/DL (7-18); CALCIUM LEVEL 8.8 MG/DL (8.8-10.2); CARBON DIOXIDE LEVEL 25 MEQ/L (21-32); CHLORIDE LEVEL 101 MEQ/L (98-107); CREATININE FOR GFR 1.16 MG/DL (0.70-1.30); GLOMERULAR FILTRATION RATE > 60.0 (>49); GLUCOSE, FASTING 499 MG/DL (70-100); POTASSIUM SERUM 4.3 MEQ/L (3.5-5.1); SODIUM LEVEL 134 MEQ/L (136-145)
[2020-08-17] MEDS ORDERED: METOPROLOL TART 50 MG TAB PO ONE (15:00)
[2020-08-17] MEDS ORDERED: HumuLIN R (REGULAR) INSULIN (NovoLIN R) **100U/ML** PER UNIT SC STA (17:09)
[2020-08-17] MEDS ORDERED: SIMVASTATIN 40 MG TAB PO SCH (21:00)
[2020-08-17] MEDS ORDERED: ROSUVASTATIN 10 MG TAB (CRESTOR) PO SCH (21:00)
[2020-08-17] MEDS ORDERED: HumaLOG INSULIN (NovoLOG) PER UNIT SC SCH (21:00)
[2020-08-17] MEDS ORDERED: LEVEMIR (INSULIN DETEMIR) 1 UNITS/0.01ML SC SCH ×2 (21:00)
[2020-08-17 22:36] LABS: CREATININE FOR GFR 1.44 MG/DL (0.70-1.30); GLOMERULAR FILTRATION RATE 53.1 (>49)
[2020-08-18 00:04] LABS: HEMOGLOBIN A1c 9.8 %
[2020-08-18 06:00] VITALS: BP 142/80
[2020-08-18] MEDS ORDERED: RIVAROXABAN 20 MG TAB (XARELTO) PO SCH (09:00)
[2020-08-18] MEDS ORDERED: LEVEMIR (INSULIN DETEMIR) 1 UNITS/0.01ML SC SCH (09:00)
[2020-08-18] MEDS ORDERED: TRAM50TA2 PO (09:32)
[2020-08-18] MEDS ORDERED: CRES10TA PO (09:32)
[2020-08-18] MEDS: COLCHICINE 0.6 MG TABLET PO SCH (09:47)
[2020-08-18] MEDS: HumaLOG INSULIN (NovoLOG) PER UNIT SC SCH (09:47)
[2020-08-18] MEDS: FUROSEMIDE 80 MG TAB PO SCH (09:48)
[2020-08-18 09:49] VITALS: BP 146/89
[2020-08-18] MEDS: POTASSIUM CHLORIDE 10 MEQ SR TABLET PO SCH (09:49)
[2020-08-18] MEDS: METOPROLOL TART 50 MG TAB PO SCH (09:49)
--- NOTE | 2020-08-18 16:13 | DS.PDOC ---
Discharge Summary General Date of Admission Aug 17, 2020 at 04:43 Date of Discharge 08/18/20 Discharge Summary PROCEDURES PERFORMED DURING STAY: [None]. ADMITTING DIAGNOSES: Angioedema Gout Type 2 diabetes Diastolic CHF Coronary artery diseases Atrial fibrillation Hyperlipidemia DISCHARGE DIAGNOSES: Angioedema Gout Type 2 diabetes Diastolic CHF Coronary artery diseases Atrial fibrillation Hyperlipidemia COMPLICATIONS/CHIEF COMPLAINT: Angioedema Of The Respitory Tract. HISTORY OF PRESENT ILLNESS: 60 year old male with PMHx detailed below presents after waking up this morning with a swollen tongue. He states he woke up suddenly and could feel his tongue feeling stiff and swollen. He states this occurred once before just a few weeks ago, so he knew he needed to get up and come to the ED. He states his symptoms presented the same way last time, waking him up out of sleep. At that time, his symptoms were attributed to his COLT- inhibitor medication, quinapril, and this was discontinued. He states he has not take that medication since before the first episode in July. He also notes he is currently having an acute flare of gout in his right ankle. He states he has been taking colchicine for gout. In the ER, the patient was treated with racepinephrine, benadryl, famotadine, decadron, and FFP x2 units. Patient was somewhat limited in his ability to give a full history due to difficulty speaking; some of the history is obtained by chart review. HOSPITAL COURSE: During hospital stay the following issue addressed Angioedema Unclear etiology C4 level within normal limit, C1-INH and C1q in order to rule out inherited angioedema pending Patient received steroids with with antihistamine treatment Patient had 1 episode of angioedema around 1 month ago Patient's medications list is extensive and many of his medications can be potentially cause of angioedema: Gabapentin, Xarelto, Norvasc, aspirin, Trulicity, Ezetimibe, simvastatin I introduced most essential medications to him. Patient will need follow-up with emr specialist in the outpatient settings for workup Gout Patient stated that he's been having gout exacerbation since last week continue colchicine Type 2 diabetes Insulin sliding scale Detemir twice a day Diabetes diet Poorly controlled diabetes HbA1c 9.8. I recommended to increase the dose of Lant us to 65 units twice a day Diastolic CHF Not in acute exacerbation Continue home cardioprotective medications Coronary artery diseases Aspirin on hold due to possible side effect as angioedema I changed simvastatin to rosuvastatin. Simvastatin could be cause of angioedema Atrial fibrillation Patient developed tachycardia in the morning I restarted metoprolol and xarelto Xarelto can be cause of angioedema, but it's essential medication and continue to monitor for any signs of angioedema Hyperlipidemia Continue rosuvastatin DISCHARGE MEDICATIONS: Please see below. ALLERGIES: Please see below. PHYSICAL EXAMINATION ON DISCHARGE: VITAL SIGNS: Please see below. GENERAL APPEARANCE: Morbidly obese male HEENT: no scleral icterus, no JVD, EOMI CARDIOVASCULAR: Irregularly irregular LUNGS: Diminished lung sounds bilaterally ABDOMEN: soft & not tender w palpitation MUSCULOSKELETAL: +3 pitting edema, skin changes consistent with chronic PVD INTEGUMENT: no generalized pallor NEUROLOGICAL: cranial nerve function from 2-12 intact intact, follows commands, speech not dysarthric LABORATORY DATA: Please see below. PROGNOSIS: Fair ACTIVITY: [As tolerated]. DIET: Diabetes DISPOSITION: 01 Home, Self-Care. ITEMS TO FOLLOWUP ON ON OUTPATIENT: Follow-up with emr specialist and PCP in 3-5 days Increase the dose of Lantus to 65 units twice in a day, in the morning and at the bed time. You may resume aspirin, trulicity,ezetimibe, gabapentin ONLY after discussion with emr specialist. DISCHARGE CONDITION: [Stable]. TIME SPENT ON DISCHARGE: 40 minutes. Vital Signs/I&Os Vital Signs Date Time Temp Pulse Resp B/P (MAP) Pulse Ox O2 Delivery O2 Flow Rate FiO2 08/18/20 09:49 62 146/89 08/18/20 06:00 98.6 20 98 08/17/20 09:12 Room Air I&O- Last 24 Hours up to 6 AM 08/18/20 05:59 Intake Total 5360 ml Output Total 4000 ml Balance 1360 ml Laboratory Data Labs 24H Laboratory Tests 2 08/17/20 16:37: Bedside Glucose (Misc Panel) 479H 08/17/20 18:41: Bedside Glucose (Misc Panel) 487H 08/17/20 20:39: Bedside Glucose (Misc Panel) 417H 08/17/20 20:56: Anion Gap 10, Glomerular Filtration Rate 53.1, Calcium Level 9.0 08/18/20 06:12: Bedside Glucose (Misc Panel) 283H CBC/BMP Laboratory Tests 08/17/20 20:56 FSBS Laboratory Tests Test 08/17/20 16:37 08/17/20 18:41 08/17/20 20:39 08/18/20 06:12 Range/Units [facility] 479 487 417 283 80-115 MG/DL Discharge Medications Scheduled Amlodipine Besylate (Amlodipine Besylate) 5 Mg Tablet, 5 MG PO DAILY, (Reported) Colchicine (Mitigare) 0.6 Mg Capsule, 0.6 MG PO BID, (Reported) Ertugliflozin Pidolate (Steglatro) 5 Mg Tablet, 5 MG PO DAILY, (Reported) Furosemide (Furosemide) 80 Mg Tablet, 80 MG PO BID, (Reported) Glipizide (Glipizide) 10 Mg Tablet, 10 MG PO BID, (Reported) Insulin Glargine,Hum.rec.anlog (Basaglar Kwikpen U-100) 100 Unit/1 Ml Insuln.pen, 99 UNIT SC QHS, (Reported) Metformin HCl (Metformin HCl) 1,000 Mg Tablet, 1,000 MG PO BID, (Reported) Metolazone (Metolazone) 2.5 Mg Tablet, 2.5 MG PO 2XW, (Reported) TUESDAY AND TUESDAY Metoprolol Tartrate (Metoprolol Tartrate) 50 Mg Tablet, 50 MG PO BID, (Reported) [place]-3 Fatty Acids/Fish Oil (Fish Oil 1,000 mg Capsule) 1 Each Capsule, 2,000 MG PO DAILY, (Reported) Oxybutynin Chloride (Oxybutynin Chloride) 5 Mg Tablet, 5 MG PO BID, (Reported) Potassium Chloride (K-Tab ER) 20 Meq Tab, 40 MEQ PO DAILY, (Reported) Rivaroxaban (Xarelto) 20 Mg Tablet, 20 MG PO DAILY, (Reported) Rosuvastatin Calcium (Crestor) 10 Mg Tablet, 20 MG PO QHS Scheduled PRN Tramadol HCl (Tramadol HCl) 50 Mg Tablet, 50 MG PO Q6HP PRN for MODERATE PAIN (PS 5-7) Miscellaneous Medications [med rec comment] , (Reported) patient unable to speak. spoke briefly w/ patient nurse told me all meds were verified w/patient upon arrival.matched up with external Allergies Coded Allergies: atorvastatin (Verified Allergy, Unknown, 07/28/20) niacin (Verified Allergy, Unknown, 07/28/20) LUIS MAYNARD DO Aug 18, 2020 16:13
== END 2020-08-18 11:57 | disposition home or self-care (01) | DRG 811 ==
LOC: M ED 00:54 → M ED INP 04:43 → ENRESERV 05:07 → M ICU 05:40 → M MSPAV 10:34
PROVIDERS: ADMIT Family Medicine; ATTEND Internal Medicine
DX: T78.3XXA Angioneurotic edema, initial encounter (principal); I11.0 Hypertensive heart disease with heart failure; I50.32 Chronic diastolic (congestive) heart failure; I25.10 Atherosclerotic heart disease of native coronary artery without angina pectoris; G47.30 Sleep apnea, unspecified; E11.65 Type 2 diabetes mellitus with hyperglycemia; T39.015A Adverse effect of aspirin, initial encounter; E78.5 Hyperlipidemia, unspecified; M10.9 Gout, unspecified; Z79.82 Long term (current) use of aspirin; Z79.84 Long term (current) use of oral hypoglycemic drugs; Z79.01 Long term (current) use of anticoagulants; Z79.899 Other long term (current) drug therapy; Z88.8 Allergy status to other drugs, medicaments and biological substances

== ENCOUNTER 2020-08-20 16:43 | Emergency (ER) | payer OTHER ==
[~2020-08-20] VITALS: Ht 190.5 cm; Wt 184.6 kg
[~2020-08-20 16:43] MED LIST changes: +CRES10TA PO; +TRAM50TA2 PO; +med rec comment
[2020-08-20] MEDS ORDERED: diphenhydrAMINE 50MG/ML VIAL (J1200) IV STA (17:31)
[2020-08-20] MEDS ORDERED: ALLO100T PO (17:32)
[2020-08-20] MEDS ORDERED: methylPREDNISolone 125MG 2ML VIAL IV ONE (17:35)
[2020-08-20] MEDS ORDERED: FAMOTIDINE INJ 20MG/2ML VIAL (S0028 PER 1) IVP ONE (17:35)
[2020-08-20] MEDS ORDERED: METOPROLOL TART 25 MG TABLET PO ONE (17:50)
[2020-08-20] MEDS: METOPROLOL 5 MG/5 ML VIAL IV SCH ×3 (18:07→18:21)
[2020-08-20 18:21] VITALS: BP 117/67
[2020-08-20] MEDS ORDERED: METO50TA7 PO (19:47)
[2020-08-20 20:13] VITALS: BP 128/71
== END 2020-08-20 20:18 | disposition home or self-care (01) ==
LOC: M ED 16:43
DX: T78.3XXA Angioneurotic edema, initial encounter (principal); X58.XXXA Exposure to other specified factors, initial encounter; Y92.89 Other specified places as the place of occurrence of the external cause; I10 Essential (primary) hypertension; E11.9 Type 2 diabetes mellitus without complications; I48.91 Unspecified atrial fibrillation; Z88.8 Allergy status to other drugs, medicaments and biological substances; Z79.899 Other long term (current) drug therapy; Z79.4 Long term (current) use of insulin
CPT/HCPCS: 80047; 96374; 96375; 99284; J1200; J2930

== ENCOUNTER 2021-05-22 08:31 | Emergency (ER) | payer OTHER ==
[~2021-05-22] VITALS: Ht 190.5 cm; Wt 180.3 kg
[~2021-05-22 08:31] MED LIST changes: +ALLO100T PO
[2021-05-22] MEDS ORDERED: LORazepam 2 MG/ML VIAL IV STA (09:26)
[2021-05-22 09:34] LABS: BASO # 0.1 10^3/uL (0.0-0.2); EOS # 0.2 10^3/uL (0.0-0.5); HEMATOCRIT 48.2 % (42.0-52.0); HEMOGLOBIN 15.5 g/dl (13.5-17.5); MEAN CORPUSCULAR HEMOGLOBIN 27.7 pg (27.0-33.0); MEAN CORPUSCULAR HGB CONC 32.2 g/dl (32.0-36.5); MEAN CORPUSCULAR VOLUME 86.1 fl (80.0-96.0); MONO # 0.5 10^3/uL (0.0-0.8); MONO % 6.8 % (2.0-8.0); NEUTROPHILS # 4.5 10^3/uL (1.5-8.5); NEUTROPHILS % 61.8 % (36.0-66.0); PLATELET COUNT, AUTOMATED 213 10^3/uL (150-450); WHITE BLOOD COUNT 7.3 10^3/uL (4.0-10.0)
[2021-05-22 09:45] LABS: INR 1.65
[2021-05-22 09:46] LABS: PARTIAL THROMBOPLASTIN TIME 38.7 SECONDS (25.9-37.0)
[2021-05-22 09:59] LABS: BLOOD UREA NITROGEN 31 MG/DL (7-18); CALCIUM LEVEL 9.8 MG/DL (8.8-10.2); CARBON DIOXIDE LEVEL 27 MEQ/L (21-32); CHLORIDE LEVEL 95 MEQ/L (98-107); CREATININE FOR GFR 1.28 MG/DL (0.70-1.30); GLOMERULAR FILTRATION RATE > 60.0 (>49); GLUCOSE, FASTING 317 MG/DL (70-100); POTASSIUM SERUM 3.5 MEQ/L (3.5-5.1); SODIUM LEVEL 135 MEQ/L (136-145)
[2021-05-22 10:07] LABS: MB/CK RELATIVE INDEX 1.74 (< OR =4)
[2021-05-22] MEDS ORDERED: METOPROLOL TART 25 MG TABLET PO ONE (17:05)
[2021-05-22] MEDS ORDERED: PRED20TA PO (17:05)
[2021-05-22] MEDS ORDERED: VALA1TAB5 PO (17:06)
[2021-05-22] MEDS ORDERED: BACIOIN23 OS (17:08)
[2021-05-22 18:10] VITALS: BP 137/84
[2021-05-25 13:07] LABS: Lyme Disease IgG/IgM Antibodie <0.91 ISR (0.00-0.90); Lyme Disease IgM Ab Quantitati <0.80 index (0.00-0.79)
[2021-06-17] MEDS ORDERED: DULA3PEN SC (11:56)
== END 2021-05-22 18:23 | disposition home or self-care (01) ==
LOC: M ED 08:31
DX: G51.0 Bell's palsy (principal); E11.9 Type 2 diabetes mellitus without complications; I10 Essential (primary) hypertension; I48.91 Unspecified atrial fibrillation; E78.5 Hyperlipidemia, unspecified; Z79.899 Other long term (current) drug therapy; Z79.4 Long term (current) use of insulin; Z79.01 Long term (current) use of anticoagulants
CPT/HCPCS: 70450; 70544; 70551; 71045; 80048; 82550; 82553; 85025; 85610; 85730; 86617; 93005; 93041; 94760; 96374; 99285; J2060

== ENCOUNTER 2021-12-05 14:08 | Emergency (ER) | payer OTHER ==
[~2021-12-05] VITALS: Ht 188 cm; Wt 177.3 kg
[~2021-12-05 14:08] MED LIST changes: +BACIOIN23 OS; +DULA3PEN SC; +PRED20TA PO; +VALA1TAB5 PO
[2021-12-05 14:33] LABS: BASO # 0.1 10^3/uL (0.0-0.2); BASO % 0.6 % (0.0-1.0); EOS # 0.3 10^3/uL (0.0-0.5); EOS % 3.4 % (0.0-3.0); HEMATOCRIT 45.1 % (42.0-52.0); HEMOGLOBIN 14.9 g/dl (13.5-17.5); LYMPH # 1.8 10^3/uL (1.5-5.0); LYMPH % 21.3 % (24.0-44.0); MEAN CORPUSCULAR HEMOGLOBIN 28.6 pg (27.0-33.0); MEAN CORPUSCULAR VOLUME 86.6 fl (80.0-96.0); MONO # 0.5 10^3/uL (0.0-0.8); MONO % 5.9 % (2.0-8.0); NEUTROPHILS # 5.9 10^3/uL (1.5-8.5); NEUTROPHILS % 68.6 % (36.0-66.0); PLATELET COUNT, AUTOMATED 174 10^3/uL (150-450); RED BLOOD COUNT 5.21 10^6/uL (4.30-6.10); WHITE BLOOD COUNT 8.6 10^3/uL (4.0-10.0)
[2021-12-05 15:01] LABS: CK-MB VALUE MASS 1.9 NG/ML (<3.6); MB/CK RELATIVE INDEX 1.27 (< OR =4)
[2021-12-05 15:06] LABS: BLOOD UREA NITROGEN 21 MG/DL (7-18); CALCIUM LEVEL 9.4 MG/DL (8.8-10.2); CARBON DIOXIDE LEVEL 28 MEQ/L (21-32); CHLORIDE LEVEL 103 MEQ/L (98-107); CREATININE FOR GFR 1.15 MG/DL (0.70-1.30); FREE T4 0.96 NG/DL (0.76-1.46); GLOMERULAR FILTRATION RATE > 60.0 (>49); GLUCOSE, FASTING 221 MG/DL (70-100); MAGNESIUM LEVEL 1.6 MG/DL (1.8-2.4); POTASSIUM SERUM 3.6 MEQ/L (3.5-5.1); SODIUM LEVEL 139 MEQ/L (136-145)
[2021-12-05 15:52] VITALS: BP 158/101
== END 2021-12-05 16:33 | disposition left against medical advice (07) ==
LOC: M ED 14:08
DX: R55 Syncope and collapse (principal); S00.03XA Contusion of scalp, initial encounter; S80.212A Abrasion, left knee, initial encounter; W18.39XA Other fall on same level, initial encounter; Y92.89 Other specified places as the place of occurrence of the external cause; I10 Essential (primary) hypertension; E11.9 Type 2 diabetes mellitus without complications; I50.9 Heart failure, unspecified; I48.91 Unspecified atrial fibrillation; I25.10 Atherosclerotic heart disease of native coronary artery without angina pectoris; G47.30 Sleep apnea, unspecified; Z88.8 Allergy status to other drugs, medicaments and biological substances; Z79.899 Other long term (current) drug therapy; Z79.4 Long term (current) use of insulin; Z79.84 Long term (current) use of oral hypoglycemic drugs

== ENCOUNTER 2023-06-01 14:32 | Emergency (ER) | payer OTHER ==
[~2023-06-01] VITALS: Ht 182.9 cm; Wt 190.9 kg
[~2023-06-01 14:32] MED LIST changes: +ALOG25TA PO; +JARD1TAB3 PO; +METO100T5 PO; +NESI25TA PO; +OMEG10002 PO; -OXYB5TAB10 PO; +OXYB5TAB11 PO; +POTA-151 PO; +ROSU5TAB5 PO; +SIMV-254 PO; +SPIR-10 PO; +TAMS1CAP17 PO; -ZOCO40TA PO
[2023-06-01 15:30] LABS: BASO % 0.5 % (0.0-1.0); EOS # 0.3 10^3/uL (0.0-0.5); EOS % 3.1 % (0.0-3.0); HEMATOCRIT 50.4 % (42.0-52.0); HEMOGLOBIN 16.3 g/dl (13.5-17.5); LYMPH # 1.8 10^3/uL (1.5-5.0); LYMPH % 22.3 % (24.0-44.0); MEAN CORPUSCULAR HGB CONC 32.3 g/dl (32.0-36.5); MEAN CORPUSCULAR VOLUME 92.6 fl (80.0-96.0); MONO # 0.6 10^3/uL (0.0-0.8); MONO % 7.1 % (2.0-8.0); NEUTROPHILS # 5.4 10^3/uL (1.5-8.5); NEUTROPHILS % 66.6 % (36.0-66.0); PLATELET COUNT, AUTOMATED 189 10^3/uL (150-450); RED BLOOD COUNT 5.44 10^6/uL (4.30-6.10); WHITE BLOOD COUNT 8.1 10^3/uL (4.0-10.0)
[2023-06-01 15:51] LABS: BLOOD UREA NITROGEN 20 MG/DL (9-23); CALCIUM LEVEL 9.5 MG/DL (8.3-10.6); CARBON DIOXIDE LEVEL 26 MMOL/L (20-31); CHLORIDE LEVEL 102 MMOL/L (98-107); CREATININE FOR GFR 0.99 MG/DL (0.70-1.30); GLOMERULAR FILTRATION RATE > 60.0 (>49); GLUCOSE, FASTING 144 MG/DL (74-106); POTASSIUM SERUM 4.4 MMOL/L (3.5-5.1); SODIUM LEVEL 137 MMOL/L (136-145)
[2023-06-01 15:52] LABS: INR 1.66
[2023-06-01 15:53] LABS: PARTIAL THROMBOPLASTIN TIME 34.7 SECONDS (24.8-34.2)
[2023-06-01 15:58] LABS: RSV AMPLIFICATION NEGATIVE (NEGATIVE)
[2023-06-01] MEDS ORDERED: [UNRECOGNIZED DRUG - OTHER] OD (16:14)
[2023-06-01] MEDS ORDERED: PRED20TA PO ×2 (16:14)
[2023-06-01] MEDS ORDERED: ACYC200C8 PO (16:14)
[2023-06-01] MEDS ORDERED: ACYCLOVIR 200 MG CAPSULE PO ONE (16:15)
[2023-06-01] MEDS ORDERED: predniSONE 20 MG TAB PO ONE (16:15)
[2023-06-01 16:31] VITALS: BP 140/75; TEMP 98; O2SAT 96
== END 2023-06-01 16:57 | disposition home or self-care (01) ==
LOC: M ED 14:32
DX: G51.0 Bell's palsy (principal); I11.9 Hypertensive heart disease without heart failure; E11.9 Type 2 diabetes mellitus without complications; Z88.8 Allergy status to other drugs, medicaments and biological substances; Z79.84 Long term (current) use of oral hypoglycemic drugs; Z79.899 Other long term (current) drug therapy; Z79.4 Long term (current) use of insulin; Z79.01 Long term (current) use of anticoagulants
CPT/HCPCS: 36415; 70450; 71045; 80048; 85025; 85610; 85730; 87631; 93005; 93041; 94760; 99284; J7512

== ENCOUNTER → 2023-07-19 | Outpatient (CLI) | payer OTHER ==
[~2023-07-19] MED LIST changes: +ACYC200C8 PO; -OXYB5TAB11 PO; +OXYB5TAB14 PO; +[UNRECOGNIZED DRUG - OTHER] OD
[2023-07-19 13:49] LABS: HEMOGLOBIN 15.6 g/dl (13.5-17.5); MEAN CORPUSCULAR HEMOGLOBIN 29.7 pg (27.0-33.0); MEAN CORPUSCULAR HGB CONC 31.8 g/dl (32.0-36.5); MEAN CORPUSCULAR VOLUME 93.3 fl (80.0-96.0); PLATELET COUNT, AUTOMATED 178 10^3/uL (150-450); RED BLOOD COUNT 5.25 10^6/uL (4.30-6.10); WHITE BLOOD COUNT 7.1 10^3/uL (4.0-10.0)
[2023-07-19 14:10] LABS: ALKALINE PHOSPHATASE 118 U/L (46-116); ALT/SGPT 45 U/L (7.0-40); AST/SGOT 34 U/L (<34); BILIRUBIN,TOTAL 0.5 MG/DL (0.3-1.2); BLOOD UREA NITROGEN 22 MG/DL (9-23); CALCIUM LEVEL 9.6 MG/DL (8.3-10.6); CARBON DIOXIDE LEVEL 24 MMOL/L (20-31); CHLORIDE LEVEL 104 MMOL/L (98-107); CHOLESTEROL LEVEL 155 MG/DL (<200); CHOLESTEROL RISK RATIO 3.57 (<5); CREATININE FOR GFR 1.03 MG/DL (0.70-1.30); GLOMERULAR FILTRATION RATE > 60.0 (>49); GLUCOSE, FASTING 137 MG/DL (74-106); HDL CHOLESTEROL 43.3 MG/DL (>40); LDL CHOLESTEROL 65.3 MG/DL (<100); NON-HDL-C 111.7 MG/DL; POTASSIUM SERUM 4.4 MMOL/L (3.5-5.1); SODIUM LEVEL 137 MMOL/L (136-145); TRIGLYCERIDES LEVEL 232 MG/DL (<150)
== END ==
LOC: M PLALAB 11:03
PROVIDERS: ATTEND Nurse Practitioner Family
DX: I25.10 Atherosclerotic heart disease of native coronary artery without angina pectoris (principal); I50.20 Unspecified systolic (congestive) heart failure; I48.21 Permanent atrial fibrillation; E78.2 Mixed hyperlipidemia

== ENCOUNTER → 2024-02-08 | Outpatient (CLI) | payer OTHER ==
[~2024-02-08] MED LIST changes: +ROSU5TAB40 PO; -ROSU5TAB5 PO
== END ==
LOC: M PLAIMG 13:15
PROVIDERS: ATTEND Emergency Medicine
DX: J30.0 Vasomotor rhinitis (principal); J32.2 Chronic ethmoidal sinusitis; J34.2 Deviated nasal septum

== ENCOUNTER 2024-04-05 07:52 | Emergency (ER) | payer MEDICARE, OTHER ==
[~2024-04-05] VITALS: Ht 190.5 cm; Wt 178.1 kg
[~2024-04-05 07:52] MED LIST changes: +GABA-1172 PO; -GABA-282 PO; +GLIP10TA15 PO; -GLIP10TA6 PO; -ROSU5TAB40 PO; +ROSU5TAB49 PO
[2024-04-05 08:14] LABS: BASO % 0.4 % (0.0-1.0); EOS # 0.1 10^3/uL (0.0-0.5); EOS % 0.6 % (0.0-3.0); HEMATOCRIT 38.5 % (42.0-52.0); HEMOGLOBIN 12.2 g/dl (13.5-17.5); LYMPH # 1.3 10^3/uL (1.5-5.0); LYMPH % 14.1 % (24.0-44.0); MEAN CORPUSCULAR HEMOGLOBIN 28.6 pg (27.0-33.0); MEAN CORPUSCULAR HGB CONC 31.7 g/dl (32.0-36.5); MEAN CORPUSCULAR VOLUME 90.4 fl (80.0-96.0); MONO # 0.6 10^3/uL (0.0-0.8); MONO % 5.9 % (2.0-8.0); NEUTROPHILS # 7.4 10^3/uL (1.5-8.5); NEUTROPHILS % 78.3 % (36.0-66.0); PLATELET COUNT, AUTOMATED 300 10^3/uL (150-450); RED BLOOD COUNT 4.26 10^6/uL (4.30-6.10); WHITE BLOOD COUNT 9.5 10^3/uL (4.0-10.0)
[2024-04-05] MEDS: NS 500 ML IV ONE ×3 (08:20→11:46)
[2024-04-05 08:26] LABS: INR 2.89; PROTHROMBIN TIME 30.1 SECONDS (12.5-14.5)
[2024-04-05] MEDS ORDERED: ISOVUE-370 76% 100ML VIAL As Ordered ONE (08:33)
[2024-04-05 08:52] LABS: LIPASE 25 U/L (12-53)
[2024-04-05 08:53] LABS: CPK CREATINE PHOSPHOKINASE 63 U/L (46-171)
[2024-04-05 08:54] LABS: ALBUMIN 2.9 G/DL (3.2-5.2); ALKALINE PHOSPHATASE 117 U/L (40-129); ALT/SGPT 28 U/L (7.0-40); AST/SGOT 50 U/L (<34); BILIRUBIN,DIRECT 0.2 MG/DL (<0.4); BILIRUBIN,TOTAL 0.5 MG/DL (0.3-1.2); BLOOD UREA NITROGEN 56 MG/DL (9-23); CALCIUM LEVEL 11.1 MG/DL (8.3-10.6); CARBON DIOXIDE LEVEL 27 MMOL/L (20-31); CHLORIDE LEVEL 102 MMOL/L (98-107); CK-MB VALUE MASS 2.2 NG/ML (<3.6); CREATININE FOR GFR 1.15 MG/DL (0.70-1.30); GLOMERULAR FILTRATION RATE > 60.0 (>49); GLUCOSE, FASTING 85 MG/DL (74-106); MB/CK RELATIVE INDEX 3.49 (< OR =4); POTASSIUM SERUM 4.9 MMOL/L (3.5-5.1); SODIUM LEVEL 137 MMOL/L (136-145); TOTAL PROTEIN 6.2 G/DL (5.7-8.2)
[2024-04-05 08:55] LABS: FREE T4 1.19 NG/DL (0.89-1.76)
[2024-04-05 08:56] LABS: THYROID STIMULATING HORMONE 3.695 uIU/ML (0.55-4.78)
[2024-04-05 09:48] LABS: CK-MB VALUE MASS 2.2 NG/ML (<3.6)
[2024-04-05] MEDS: cefTRIAXone SOD 2 GM in DEXTROSE 5% (D5W) ADV/MINI-BAG 50 ML IV ONE (09:49)
[2024-04-05] MEDS: DIGOXIN INJ 0.5 MG/2 ML AMP IV STA (09:50)
[2024-04-05] MEDS: fentaNYL 100 MCG/2 ML INJECTION IV ONE (09:51)
[2024-04-05 09:57] LABS: PROCALCITONIN 0.37 ng/ml
[2024-04-05] MEDS: ACETAMINOPHEN *IV* 1,000 MG in IV 1 EA IV ONE (10:00)
[2024-04-05 10:02] LABS: MB/CK RELATIVE INDEX 3.49 (< OR =4)
[2024-04-05 10:16] VITALS: TEMP 95.1
[2024-04-05 10:38] LABS: VENOUS BASE EXCESS -3.5 (-2.0-2.0); VENOUS HCO3 22.6 MMOL/L (23.0-27.0); VENOUS O2 SATURATION 74.3 % (60.0-80.0); VENOUS PARTIAL PRESSURE CO2 45.1 mmHg (38.0-50.0); VENOUS PH 7.318 UNITS (7.330-7.430); VENOUS STANDARD HCO3 21.1 MMOL/L
[2024-04-05 10:41] LABS: HEMATOCRIT 37.4 % (42.0-52.0); HEMOGLOBIN 11.7 g/dl (13.5-17.5); MEAN CORPUSCULAR HEMOGLOBIN 28.7 pg (27.0-33.0); MEAN CORPUSCULAR HGB CONC 31.3 g/dl (32.0-36.5); MEAN CORPUSCULAR VOLUME 91.7 fl (80.0-96.0); PLATELET COUNT, AUTOMATED 262 10^3/uL (150-450); RED BLOOD COUNT 4.08 10^6/uL (4.30-6.10); WHITE BLOOD COUNT 7.7 10^3/uL (4.0-10.0)
[2024-04-05 11:01] VITALS: BP 114/62
[2024-04-05 11:16] VITALS: O2SAT 95
[2024-04-05] MEDS ORDERED: HYDR-3716 PO (11:28)
[2024-04-05] MEDS ORDERED: CLOP75TA2 PO (11:28)
[2024-04-05] MEDS ORDERED: PRED20TA PO (11:28)
[2024-04-05] MEDS ORDERED: FLON1SPR NARES (11:28)
[2024-04-05] MEDS ORDERED: LANTINJ4 SC ×2 (11:28)
[2024-04-05] MEDS ORDERED: TIRZ5PEN SQ ×2 (11:28)
[2024-04-05] MEDS ORDERED: NITR4TASL SL (11:28)
[2024-04-05] MEDS ORDERED: METO1TAB33 PO (11:28)
[2024-04-05] MEDS ORDERED: OPTI0.5D2 OP (11:35)
[2024-04-05] MEDS ORDERED: HOME MED LIST COMPLETE! XX SCH (11:40)
== END 2024-04-05 11:35 | disposition left against medical advice (07) ==
LOC: M ED 07:52
DX: J12.89 Other viral pneumonia (principal); B97.29 Other coronavirus as the cause of diseases classified elsewhere; R91.8 Other nonspecific abnormal finding of lung field; R16.1 Splenomegaly, not elsewhere classified; E27.9 Disorder of adrenal gland, unspecified; I10 Essential (primary) hypertension; Z53.9 Procedure and treatment not carried out, unspecified reason; I48.91 Unspecified atrial fibrillation; I25.10 Atherosclerotic heart disease of native coronary artery without angina pectoris; K76.0 Fatty (change of) liver, not elsewhere classified; E11.9 Type 2 diabetes mellitus without complications; E78.5 Hyperlipidemia, unspecified; G47.33 Obstructive sleep apnea (adult) (pediatric); Z95.5 Presence of coronary angioplasty implant and graft; Z79.01 Long term (current) use of anticoagulants; Z79.899 Other long term (current) drug therapy; Z88.8 Allergy status to other drugs, medicaments and biological substances
CPT/HCPCS: 70450; 71045; 71275; 74177; 80047; 80048; 80076; 82550; 82553; 82803; 83605; 83690; 83880; 84145; 84439; 84443; 84484; 85025; 85027; 85610; 86850; 86900; 86901; 87040; 87486; 87581; 87633; 87798; 93005; 93041; 94760; 96361; 96365; 96368; 96375; 99285; J0131; J0696; J1100; J1160; J3010; Q9967

== ENCOUNTER 2024-04-15 16:47 | Inpatient (IN) | payer MEDICARE ==
[~2024-04-15] VITALS: Ht 190.5 cm; Wt 160.5 kg
[~2024-04-15 16:47] MED LIST changes: +CLOP75TA2 PO; +FLON1SPR NARES; +HYDR-3716 PO; +LANTINJ4 SC; +METO1TAB33 PO; +NITR4TASL SL; +OPTI0.5D2 OP; +TIRZ5PEN SQ
[2024-04-15 17:43] LABS: VENOUS BASE EXCESS 4.3 (-2.0-2.0); VENOUS HCO3 29.7 MMOL/L (23.0-27.0); VENOUS O2 SATURATION 67.8 % (60.0-80.0); VENOUS PARTIAL PRESSURE CO2 47.7 mmHg (38.0-50.0); VENOUS PARTIAL PRESSURE O2 36.5 mmHg (30.0-50.0); VENOUS PH 7.412 UNITS (7.330-7.430); VENOUS STANDARD HCO3 27.7 MMOL/L; VENOUS TOTAL CO2 31.2 MMOL/L (24.0-28.0)
[2024-04-15] MEDS: METOPROLOL 5 MG/5 ML VIAL IV STA ×3 (17:43→19:19)
[2024-04-15 17:47] LABS: BASO % 0.1 % (0.0-1.0); EOS # 0.1 10^3/uL (0.0-0.5); EOS % 0.7 % (0.0-3.0); HEMATOCRIT 35.1 % (42.0-52.0); HEMOGLOBIN 11.1 g/dl (13.5-17.5); LYMPH # 0.5 10^3/uL (1.5-5.0); LYMPH % 5.4 % (24.0-44.0); MEAN CORPUSCULAR HGB CONC 31.6 g/dl (32.0-36.5); MEAN CORPUSCULAR VOLUME 88.4 fl (80.0-96.0); MONO # 0.5 10^3/uL (0.0-0.8); MONO % 5.8 % (2.0-8.0); NEUTROPHILS # 7.7 10^3/uL (1.5-8.5); NEUTROPHILS % 87.7 % (36.0-66.0); PLATELET COUNT, AUTOMATED 284 10^3/uL (150-450); RED BLOOD COUNT 3.97 10^6/uL (4.30-6.10); WHITE BLOOD COUNT 8.8 10^3/uL (4.0-10.0)
[2024-04-15 17:59] LABS: INR 2.13; PARTIAL THROMBOPLASTIN TIME 24.8 SECONDS (24.8-34.2); PROTHROMBIN TIME 23.9 SECONDS (12.5-14.5)
[2024-04-15 18:21] LABS: CPK CREATINE PHOSPHOKINASE 47 U/L (46-171)
[2024-04-15 18:30] LABS: ALBUMIN 2.9 G/DL (3.2-5.2); ALKALINE PHOSPHATASE 132 U/L (40-129); ALT/SGPT 38 U/L (7.0-40); AST/SGOT 40 U/L (<34); BILIRUBIN,DIRECT 0.4 MG/DL (<0.4); BLOOD UREA NITROGEN 31 MG/DL (9-23); CARBON DIOXIDE LEVEL 31 MMOL/L (20-31); CHLORIDE LEVEL 100 MMOL/L (98-107); CK-MB VALUE MASS 1.2 NG/ML (<3.6); CREATININE FOR GFR 0.75 MG/DL (0.70-1.30); GLOMERULAR FILTRATION RATE > 60.0 (>49); GLUCOSE, FASTING 130 MG/DL (74-106); MB/CK RELATIVE INDEX 2.55 (< OR =4); POTASSIUM SERUM 4.4 MMOL/L (3.5-5.1); SODIUM LEVEL 136 MMOL/L (136-145); THYROID STIMULATING HORMONE 1.099 uIU/ML (0.55-4.78)
[2024-04-15 19:12] LABS: MB/CK RELATIVE INDEX 4.44 (< OR =4)
[2024-04-15] MEDS: FUROSEMIDE 40MG/4ML VIAL IV ONE (19:54)
[2024-04-15] MEDS: LevoFLOXacin IV 750 MG in IV 1 EA IV ONE (20:03)
[2024-04-15] MEDS ORDERED: MOM 30ML SUSPENSION UDC PO PRN (21:15)
[2024-04-15] MEDS ORDERED: GLUCOSE 4 GM CHEW PO PRN (21:15)
[2024-04-15] MEDS ORDERED: MAALOX 30 ML SUSP *UDC PO PRN (21:15)
[2024-04-15] MEDS ORDERED: ACETAMINOPHEN 325 MG TAB PO PRN (21:15)
[2024-04-15] MEDS ORDERED: DEXTROSE 50% 50ML SYRINGE IV PRN (21:15)
[2024-04-15] MEDS ORDERED: GLUCAGON INJ 1MG VIAL SC PRN (21:15)
[2024-04-15] MEDS: METOPROLOL TART 25 MG TABLET PO SCH (21:52)
[2024-04-15 22:30] VITALS: BP 168/93; TEMP 97.6; O2SAT 96
[2024-04-15 23:35] VITALS: BP 148/71; O2SAT 96
[2024-04-15] MEDS ORDERED: GLIP10TA PO (23:46)
[2024-04-15] MEDS ORDERED: POTA-298 PO (23:46)
[2024-04-15] MEDS ORDERED: METO1TAB33 PO (23:46)
[2024-04-15] MEDS ORDERED: ONDA-282 PO (23:46)
[2024-04-15] MEDS ORDERED: ALLO300T2 PO (23:46)
[2024-04-15] MEDS ORDERED: OXYB5TAB14 PO (23:46)
[2024-04-15] MEDS ORDERED: FAMO1TAB11 PO (23:46)
[2024-04-15] MEDS ORDERED: FLOM0.4C39 PO (23:46)
[2024-04-15] MEDS ORDERED: HYDR-4514 PO (23:46)
[2024-04-15] MEDS ORDERED: LIDO30CR18 TOP (23:46)
[2024-04-15] MEDS ORDERED: HOME MED LIST COMPLETE! XX SCH (23:50)
[2024-04-16] VITALS (9 sets, daily range): BP systolic 120–152; BP diastolic 67–89; TEMP 97.1–98.6; O2SAT 89–99
[2024-04-16] MEDS: SODIUM CHLORIDE 0.9% INJ 10 ML SYR IV PRN (02:52)
[2024-04-16] MEDS: ANEXSIA, NORCO 7.5MG/325MG TABLET(HYDROCODONE/APAP) PO PRN (03:07)
[2024-04-16 05:46] LABS: HEMATOCRIT 34.2 % (42.0-52.0); HEMOGLOBIN 10.8 g/dl (13.5-17.5); MEAN CORPUSCULAR HEMOGLOBIN 28.2 pg (27.0-33.0); MEAN CORPUSCULAR HGB CONC 31.6 g/dl (32.0-36.5); MEAN CORPUSCULAR VOLUME 89.3 fl (80.0-96.0); PLATELET COUNT, AUTOMATED 260 10^3/uL (150-450); RED BLOOD COUNT 3.83 10^6/uL (4.30-6.10); WHITE BLOOD COUNT 7.9 10^3/uL (4.0-10.0)
[2024-04-16 06:11] LABS: ALBUMIN 2.6 G/DL (3.2-5.2); ALKALINE PHOSPHATASE 119 U/L (40-129); ALT/SGPT 34 U/L (7.0-40); AST/SGOT 37 U/L (<34); BLOOD UREA NITROGEN 27 MG/DL (9-23); CALCIUM LEVEL 8.7 MG/DL (8.3-10.6); CARBON DIOXIDE LEVEL 34 MMOL/L (20-31); CHLORIDE LEVEL 100 MMOL/L (98-107); CREATININE FOR GFR 0.73 MG/DL (0.70-1.30); GLOMERULAR FILTRATION RATE > 60.0 (>49); GLUCOSE, FASTING 101 MG/DL (74-106); POTASSIUM SERUM 4.2 MMOL/L (3.5-5.1); SODIUM LEVEL 138 MMOL/L (136-145); TOTAL PROTEIN 5.7 G/DL (5.7-8.2)
[2024-04-16] MEDS: INSULIN LISPRO (NovoLOG) PER UNIT SC SCH ×2 (07:30→20:57)
[2024-04-16] MEDS ORDERED: PILL CUTTER 1 EACH XX ONE (08:21)
[2024-04-16] MEDS: FUROSEMIDE 40MG/4ML VIAL IV SCH (08:38)
[2024-04-16] MEDS: EZETIMIBE 10MG TABLET (ZETIA) PO SCH (08:39)
[2024-04-16] MEDS: DOCUSATE SODIUM 100MG CAPSULE PO SCH (08:39)
[2024-04-16] MEDS: ROSUVASTATIN 10 MG TAB (CRESTOR) PO SCH (08:39)
[2024-04-16] MEDS: TAMSULOSIN 0.4 MG CAP PO SCH (08:39)
[2024-04-16] MEDS: FAMOTIDINE 20 MG TAB PO SCH (08:39)
[2024-04-16] MEDS: METOPROLOL TART 25 MG TABLET PO SCH (08:39)
[2024-04-16] MEDS: CLOPIDOGREL 75 MG TAB PO SCH (08:39)
[2024-04-16] MEDS: allopurinoL 300 MG TAB PO SCH (08:40)
[2024-04-16] MEDS: SPIRONOLACTONE 25 MG TAB PO SCH (08:40)
[2024-04-16] MEDS: oxyBUTYnin 5 MG TAB PO SCH (08:40)
[2024-04-16] MEDS: SODIUM CHLORIDE 0.9% INJ 10 ML SYR IV SCH (08:41)
[2024-04-16] MEDS ORDERED: amLODIPine 5 MG TAB PO SCH (09:00)
[2024-04-16] MEDS: LEVEMIR (INSULIN DETEMIR) 1 UNITS/0.01ML SC SCH (09:28)
[2024-04-16] MEDS: RIVAROXABAN 20MG TAB (XARELTO) PO SCH (17:32)
[2024-04-17] VITALS (25 sets, daily range): BP systolic 120–151; BP diastolic 57–90; TEMP 96.7–97.6; O2SAT 88–100
[2024-04-17] MEDS ORDERED: ISOVUE-370 76% 100ML VIAL As Ordered ONE (07:57)
[2024-04-17] MEDS: metOLazone 5 MG TAB PO ONE (08:07)
[2024-04-17] MEDS: HYDROMORPHONE HCL 0.5 MG/ 0.5 ML SYRINGE IV ONE (08:08)
[2024-04-17] MEDS: METOPROLOL 5 MG/5 ML VIAL IV STA (08:08)
[2024-04-17] MEDS: DICLOFENAC EPOLAMINE 1.3% PATCH TOP SCH (09:35)
[2024-04-17] MEDS: METOPROLOL 5 MG/5 ML VIAL IV ONE (09:37)
[2024-04-17] MEDS: FUROSEMIDE 40MG/4ML VIAL IV ONE ×3 (09:37→21:13)
[2024-04-17] MEDS: METOPROLOL SUCC (TopROL XL) 100MG *XL* TAB PO ONE ×2 (09:38→11:21)
[2024-04-17] MEDS: MIDODRINE 5 MG TAB PO ONE (09:39)
[2024-04-17 09:48] LABS: BASO % 0.2 % (0.0-1.0); EOS # 0.1 10^3/uL (0.0-0.5); EOS % 1.4 % (0.0-3.0); HEMATOCRIT 35.3 % (42.0-52.0); HEMOGLOBIN 10.9 g/dl (13.5-17.5); LYMPH # 0.7 10^3/uL (1.5-5.0); MEAN CORPUSCULAR HEMOGLOBIN 27.8 pg (27.0-33.0); MEAN CORPUSCULAR HGB CONC 30.9 g/dl (32.0-36.5); MEAN CORPUSCULAR VOLUME 90.1 fl (80.0-96.0); MONO # 0.6 10^3/uL (0.0-0.8); MONO % 5.9 % (2.0-8.0); NEUTROPHILS # 7.9 10^3/uL (1.5-8.5); NEUTROPHILS % 84.7 % (36.0-66.0); PLATELET COUNT, AUTOMATED 300 10^3/uL (150-450); RED BLOOD COUNT 3.92 10^6/uL (4.30-6.10); WHITE BLOOD COUNT 9.3 10^3/uL (4.0-10.0)
[2024-04-17 10:17] LABS: BLOOD UREA NITROGEN 22 MG/DL (9-23); CALCIUM LEVEL 9.1 MG/DL (8.3-10.6); CARBON DIOXIDE LEVEL 36 MMOL/L (20-31); CHLORIDE LEVEL 100 MMOL/L (98-107); GLOMERULAR FILTRATION RATE > 60.0 (>49); GLUCOSE, FASTING 71 MG/DL (74-106); MAGNESIUM LEVEL 2.2 MG/DL (1.8-2.4); POTASSIUM SERUM 4.2 MMOL/L (3.5-5.1); SODIUM LEVEL 137 MMOL/L (136-145)
[2024-04-17] MEDS: ANEXSIA, NORCO 7.5MG/325MG TABLET(HYDROCODONE/APAP) PO ONE (11:20)
[2024-04-17] MEDS: DIGOXIN INJ 0.5 MG/2 ML AMP IV STA (11:21)
[2024-04-17] MEDS ORDERED: METOPROLOL 5 MG/5 ML VIAL IV PRN (16:15)
[2024-04-17] MEDS ORDERED: FUROSEMIDE 40MG/4ML VIAL IV SCH (17:00)
[2024-04-17] MEDS: LEVEMIR (INSULIN DETEMIR) 1 UNITS/0.01ML SC SCH (20:25)
[2024-04-17] MEDS ORDERED: METOPROLOL SUCC (TopROL XL) 100MG *XL* TAB PO SCH (21:00)
[2024-04-18] VITALS (21 sets, daily range): BP systolic 124–153; BP diastolic 70–79; TEMP 97–98.2; O2SAT 89–98
[2024-04-18 06:49] LABS: BASO % 0.2 % (0.0-1.0); EOS # 0.2 10^3/uL (0.0-0.5); EOS % 1.8 % (0.0-3.0); HEMATOCRIT 34.7 % (42.0-52.0); HEMOGLOBIN 10.7 g/dl (13.5-17.5); LYMPH # 0.6 10^3/uL (1.5-5.0); LYMPH % 7.4 % (24.0-44.0); MEAN CORPUSCULAR HEMOGLOBIN 27.2 pg (27.0-33.0); MEAN CORPUSCULAR HGB CONC 30.8 g/dl (32.0-36.5); MEAN CORPUSCULAR VOLUME 88.1 fl (80.0-96.0); MONO # 0.5 10^3/uL (0.0-0.8); MONO % 5.5 % (2.0-8.0); NEUTROPHILS # 6.8 10^3/uL (1.5-8.5); NEUTROPHILS % 83.4 % (36.0-66.0); PLATELET COUNT, AUTOMATED 281 10^3/uL (150-450); RED BLOOD COUNT 3.94 10^6/uL (4.30-6.10); WHITE BLOOD COUNT 8.1 10^3/uL (4.0-10.0)
[2024-04-18 07:15] LABS: BLOOD UREA NITROGEN 22 MG/DL (9-23); CALCIUM LEVEL 9.1 MG/DL (8.3-10.6); CARBON DIOXIDE LEVEL 38 MMOL/L (20-31); CHLORIDE LEVEL 94 MMOL/L (98-107); CREATININE FOR GFR 0.72 MG/DL (0.70-1.30); DIGOXIN LEVEL 0.4 NG/ML (0.8-2.0); GLOMERULAR FILTRATION RATE > 60.0 (>49); GLUCOSE, FASTING 99 MG/DL (74-106); POTASSIUM SERUM 3.7 MMOL/L (3.5-5.1); SODIUM LEVEL 135 MMOL/L (136-145)
[2024-04-18] MEDS: METOPROLOL 5 MG/5 ML VIAL IV STA (08:59)
[2024-04-18] MEDS ORDERED: METOPROLOL SUCC (TopROL XL) 100MG *XL* TAB PO SCH (09:00)
[2024-04-18] MEDS: METOPROLOL SUCC (TopROL XL) 100MG *XL* TAB PO ONE (09:00)
[2024-04-18] MEDS ORDERED: DIGOXIN 0.125 MG TAB PO SCH (09:00)
[2024-04-18] MEDS: DIGOXIN INJ 0.5 MG/2 ML AMP IV SCH (09:01)
[2024-04-18] MEDS: POTASSIUM CHLORIDE 10MEQ SR TABLET PO ONE (09:01)
[2024-04-18] MEDS: FUROSEMIDE 40MG/4ML VIAL IV ONE (10:53)
[2024-04-18] MEDS: metOLazone 5 MG TAB PO ONE (10:53)
[2024-04-19] VITALS (9 sets, daily range): BP systolic 115–139; BP diastolic 66–90; TEMP 96.2–98.2; O2SAT 91–96
[2024-04-19 07:23] LABS: BASO % 0.4 % (0.0-1.0); EOS # 0.1 10^3/uL (0.0-0.5); EOS % 1.9 % (0.0-3.0); HEMATOCRIT 33.4 % (42.0-52.0); HEMOGLOBIN 10.5 g/dl (13.5-17.5); LYMPH # 0.7 10^3/uL (1.5-5.0); LYMPH % 10.1 % (24.0-44.0); MEAN CORPUSCULAR HEMOGLOBIN 28.2 pg (27.0-33.0); MEAN CORPUSCULAR HGB CONC 31.4 g/dl (32.0-36.5); MEAN CORPUSCULAR VOLUME 89.5 fl (80.0-96.0); MONO # 0.5 10^3/uL (0.0-0.8); MONO % 6.9 % (2.0-8.0); NEUTROPHILS # 5.7 10^3/uL (1.5-8.5); NEUTROPHILS % 78.2 % (36.0-66.0); PLATELET COUNT, AUTOMATED 260 10^3/uL (150-450); RED BLOOD COUNT 3.73 10^6/uL (4.30-6.10); WHITE BLOOD COUNT 7.3 10^3/uL (4.0-10.0)
[2024-04-19 07:52] LABS: BLOOD UREA NITROGEN 25 MG/DL (9-23); CALCIUM LEVEL 9.7 MG/DL (8.3-10.6); CARBON DIOXIDE LEVEL 38 MMOL/L (20-31); CHLORIDE LEVEL 94 MMOL/L (98-107); CREATININE FOR GFR 0.74 MG/DL (0.70-1.30); DIGOXIN LEVEL 0.5 NG/ML (0.8-2.0); GLOMERULAR FILTRATION RATE > 60.0 (>49); GLUCOSE, FASTING 108 MG/DL (74-106); SODIUM LEVEL 137 MMOL/L (136-145)
[2024-04-19] MEDS: METOPROLOL SUCC (TopROL XL) 100MG *XL* TAB PO ONE (08:02)
[2024-04-19] MEDS: MIDODRINE 5 MG TAB PO ONE (08:02)
[2024-04-19] MEDS: metOLazone 5 MG TAB PO ONE (08:02)
[2024-04-19] MEDS: FUROSEMIDE 40MG/4ML VIAL IV ONE ×2 (08:49→15:06)
[2024-04-19] MEDS: DIGOXIN INJ 0.5 MG/2 ML AMP IV STA (09:24)
[2024-04-19 12:16] LABS: IONIZED CALCIUM 4.7 MG/DL (4.5-5.3)
[2024-04-19 12:36] LABS: BLOOD UREA NITROGEN 26 MG/DL (9-23); CALCIUM LEVEL 10.3 MG/DL (8.3-10.6); CARBON DIOXIDE LEVEL 36 MMOL/L (20-31); CHLORIDE LEVEL 94 MMOL/L (98-107); CREATININE FOR GFR 0.76 MG/DL (0.70-1.30); GLOMERULAR FILTRATION RATE > 60.0 (>49); GLUCOSE, FASTING 139 MG/DL (74-106); MAGNESIUM LEVEL 1.7 MG/DL (1.8-2.4); POTASSIUM SERUM 3.9 MMOL/L (3.5-5.1); SODIUM LEVEL 134 MMOL/L (136-145)
[2024-04-19] MEDS: DIGOXIN INJ 0.5 MG/2 ML AMP IV SCH (15:06)
[2024-04-19] MEDS: RIVAROXABAN 20MG TAB (XARELTO) PO SCH (17:05)
[2024-04-19] MEDS ORDERED: AMIODARONE 150MG/3ML VIAL IVP ONE (17:40)
[2024-04-19] MEDS: AMIODARONE HCL IV ONE (18:00)
[2024-04-19] MEDS: MAGNESIUM OXIDE 400MG TAB (MAG-OX) PO ONE (18:00)
[2024-04-19] MEDS: MAG SULF 1GM/100ML (MAG RUN) 1 GM in IV 1 EA IV ONE (18:00)
[2024-04-19] MEDS: DILUENT IV ONE (18:00)
[2024-04-19] MEDS: POTASSIUM CHLORIDE 10MEQ SR TABLET PO ONE (18:00)
[2024-04-19] MEDS ORDERED: ARTIDRO4 OU (19:03)
[2024-04-19] MEDS ORDERED: ARTIFICIAL TEARS DROPS 15ML BTL (VISINE DRY RELIEF) OU SCH (20:00)
[2024-04-19] MEDS ORDERED: LACRILUBE (AKWA TEARS) OPHTH OINT 3.5GM OU SCH (21:00)
[2024-04-20] VITALS (19 sets, daily range): BP systolic 113–160; BP diastolic 58–113; TEMP 97–98; O2SAT 89–97
[2024-04-20] MEDS: FLUTICASONE PROP 0.05% NASAL SPRAY 16 GM (FLONASE) NARES SCH (00:59)
[2024-04-20 03:22] LABS: BLOOD UREA NITROGEN 25 MG/DL (9-23); CALCIUM LEVEL 9.3 MG/DL (8.3-10.6); CARBON DIOXIDE LEVEL 38 MMOL/L (20-31); CHLORIDE LEVEL 92 MMOL/L (98-107); CREATININE FOR GFR 0.84 MG/DL (0.70-1.30); GLOMERULAR FILTRATION RATE > 60.0 (>49); GLUCOSE, FASTING 139 MG/DL (74-106); MAGNESIUM LEVEL 1.8 MG/DL (1.8-2.4); POTASSIUM SERUM 3.8 MMOL/L (3.5-5.1); SODIUM LEVEL 135 MMOL/L (136-145)
[2024-04-20 06:42] LABS: BASO % 0.6 % (0.0-1.0); EOS # 0.1 10^3/uL (0.0-0.5); EOS % 1.7 % (0.0-3.0); HEMOGLOBIN 10.9 g/dl (13.5-17.5); LYMPH # 0.6 10^3/uL (1.5-5.0); LYMPH % 8.8 % (24.0-44.0); MEAN CORPUSCULAR HEMOGLOBIN 28.3 pg (27.0-33.0); MEAN CORPUSCULAR HGB CONC 32.1 g/dl (32.0-36.5); MEAN CORPUSCULAR VOLUME 88.3 fl (80.0-96.0); MONO # 0.5 10^3/uL (0.0-0.8); MONO % 6.7 % (2.0-8.0); NEUTROPHILS # 5.8 10^3/uL (1.5-8.5); NEUTROPHILS % 80.8 % (36.0-66.0); PLATELET COUNT, AUTOMATED 244 10^3/uL (150-450); RED BLOOD COUNT 3.85 10^6/uL (4.30-6.10); WHITE BLOOD COUNT 7.1 10^3/uL (4.0-10.0)
[2024-04-20 07:03] LABS: BLOOD UREA NITROGEN 24 MG/DL (9-23); CALCIUM LEVEL 9.3 MG/DL (8.3-10.6); CARBON DIOXIDE LEVEL 37 MMOL/L (20-31); CHLORIDE LEVEL 92 MMOL/L (98-107); CREATININE FOR GFR 0.79 MG/DL (0.70-1.30); DIGOXIN LEVEL 0.7 NG/ML (0.8-2.0); GLOMERULAR FILTRATION RATE > 60.0 (>49); GLUCOSE, FASTING 157 MG/DL (74-106); POTASSIUM SERUM 3.7 MMOL/L (3.5-5.1); SODIUM LEVEL 135 MMOL/L (136-145)
[2024-04-20] MEDS ORDERED: AMIODARONE 150MG/3ML VIAL IVP ONE (07:45)
[2024-04-20] MEDS: AMIODARONE HCL 150 MG in IV 1 EA IV SCH (08:20)
[2024-04-20] MEDS: METOPROLOL SUCC (TopROL XL) 100MG *XL* TAB PO ONE (08:24)
[2024-04-20] MEDS: METOPROLOL SUCC (TopROL XL) 100MG *XL* TAB PO SCH (11:14)
[2024-04-20] MEDS: metOLazone 5 MG TAB PO ONE (11:15)
[2024-04-20] MEDS: DIGOXIN INJ 0.5 MG/2 ML AMP IV STA (11:17)
[2024-04-20] MEDS: dilTIAZem 30 MG TAB PO SCH (11:17)
[2024-04-20] MEDS: FUROSEMIDE 40MG/4ML VIAL IV ONE (11:18)
[2024-04-20] MEDS: LIDOCAINE 5% (LIDODERM) PATCH TD SCH (12:18)
[2024-04-20] MEDS: ACETAMINOPHEN *IV* 1,000 MG in IV 1 EA IV ONE (12:19)
[2024-04-20] MEDS: traMADol 50 MG TAB PO ONE (12:20)
[2024-04-20] MEDS: NYSTATIN 100,000 UNITS/GM TOPICAL PWD 15GM TOP SCH (15:00)
[2024-04-21] VITALS (10 sets, daily range): BP systolic 124–138; BP diastolic 70–93; TEMP 97.2–97.7; O2SAT 86–96
[2024-04-21 05:25] LABS: BASO % 0.5 % (0.0-1.0); EOS # 0.1 10^3/uL (0.0-0.5); EOS % 1.9 % (0.0-3.0); HEMATOCRIT 34.9 % (42.0-52.0); HEMOGLOBIN 11.2 g/dl (13.5-17.5); LYMPH # 0.8 10^3/uL (1.5-5.0); LYMPH % 14.4 % (24.0-44.0); MEAN CORPUSCULAR HEMOGLOBIN 27.9 pg (27.0-33.0); MEAN CORPUSCULAR HGB CONC 32.1 g/dl (32.0-36.5); MEAN CORPUSCULAR VOLUME 86.8 fl (80.0-96.0); MONO # 0.5 10^3/uL (0.0-0.8); MONO % 8.3 % (2.0-8.0); NEUTROPHILS # 4.3 10^3/uL (1.5-8.5); NEUTROPHILS % 73.7 % (36.0-66.0); PLATELET COUNT, AUTOMATED 243 10^3/uL (150-450); RED BLOOD COUNT 4.02 10^6/uL (4.30-6.10); WHITE BLOOD COUNT 5.8 10^3/uL (4.0-10.0)
[2024-04-21 05:55] LABS: BLOOD UREA NITROGEN 28 MG/DL (9-23); CALCIUM LEVEL 9.5 MG/DL (8.3-10.6); CARBON DIOXIDE LEVEL 34 MMOL/L (20-31); CHLORIDE LEVEL 93 MMOL/L (98-107); CREATININE FOR GFR 0.82 MG/DL (0.70-1.30); GLOMERULAR FILTRATION RATE > 60.0 (>49); GLUCOSE, FASTING 115 MG/DL (74-106); POTASSIUM SERUM 3.6 MMOL/L (3.5-5.1); SODIUM LEVEL 135 MMOL/L (136-145)
[2024-04-21] MEDS ORDERED: ADVOTES6 MC (07:47)
[2024-04-21] MEDS ORDERED: DIGO0.123 PO (07:47)
[2024-04-21] MEDS ORDERED: CARD40TA PO (07:52)
[2024-04-21 07:53] LABS: DIGOXIN LEVEL 0.6 NG/ML (0.8-2.0)
[2024-04-21] MEDS ORDERED: METO25TA PO (08:22)
[2024-04-21] MEDS: DIGOXIN INJ 0.5 MG/2 ML AMP IV ONE (08:44)
[2024-04-21] MEDS: METOPROLOL SUCC (TopROL XL) 100MG *XL* TAB PO ONE (08:47)
[2024-04-21] MEDS: metOLazone 5 MG TAB PO ONE (08:47)
[2024-04-21] MEDS: MIDODRINE 5 MG TAB PO ONE (09:10)
[2024-04-21] MEDS: FUROSEMIDE 40 MG TAB PO ONE (11:08)
[2024-04-22] MEDS ORDERED: METOPROLOL SUCC (TopROL XL) 100MG *XL* TAB PO SCH (09:00)
== END 2024-04-21 13:22 | disposition home health service (06) | DRG 308 ==
LOC: EDBD 16:47 → M ED 16:47 → M ED INP 16:48 → M PCU 22:29 → OBSVTOIN 04-16 10:16
PROVIDERS: ADMIT Student in an Organized Health Care Education/Training Program; ATTEND Student in an Organized Health Care Education/Training Program
PROC: B246ZZZ Ultrasonography of Right and Left Heart (ICD-10-PCS; principal; 2024-04-16)
DX: I48.91 Unspecified atrial fibrillation (principal); I50.33 Acute on chronic diastolic (congestive) heart failure; J96.01 Acute respiratory failure with hypoxia; C83.30 Diffuse large B-cell lymphoma, unspecified site; E87.1 Hypo-osmolality and hyponatremia; Z68.42 Body mass index [BMI] 45.0-49.9, adult; E87.4 Mixed disorder of acid-base balance; E87.29 Other acidosis; I11.0 Hypertensive heart disease with heart failure; G47.33 Obstructive sleep apnea (adult) (pediatric); E11.9 Type 2 diabetes mellitus without complications; I25.10 Atherosclerotic heart disease of native coronary artery without angina pectoris; M10.9 Gout, unspecified; M54.50 Low back pain, unspecified; E78.5 Hyperlipidemia, unspecified; D64.9 Anemia, unspecified; K74.60 Unspecified cirrhosis of liver; I16.0 Hypertensive urgency; R07.89 Other chest pain; G89.29 Other chronic pain; R26.89 Other abnormalities of gait and mobility; E66.01 Morbid (severe) obesity due to excess calories; Z79.84 Long term (current) use of oral hypoglycemic drugs; Z11.52 Encounter for screening for COVID-19; Z95.5 Presence of coronary angioplasty implant and graft; Z79.899 Other long term (current) drug therapy; Z79.52 Long term (current) use of systemic steroids; Z79.02 Long term (current) use of antithrombotics/antiplatelets; Z88.8 Allergy status to other drugs, medicaments and biological substances